=== PATIENT | male | born 1945 | race Caucasian/White ===

== ENCOUNTER 2020-10-31 07:37 | Outpatient (REF) | payer MEDICARE, SELFPAY ==
[2020-10-31 11:08] LABS: Estimated Average Glucose 105 mg/dL; Hemoglobin A1c % 5.3 %
[2020-10-31 11:48] LABS: Alanine Aminotransferase 26 U/L (0-40); Albumin Level 4.3 g/dL (3.5-5.0); Alkaline Phosphatase 98 U/L (39-117); Anion Gap 12 (12-20); Aspartate Amino Transferase 20 U/L (5-37); Bilirubin Total 0.7 mg/dL (0.0-1.0); Blood Urea Nitrogen 16 mg/dL (9-16); Calcium 8.6 mg/dL (8.4-10.2); Carbon Dioxide 28 mmol/L (22-29); Chloride 104 mmol/L (96-108); Cholesterol 172 mg/dL; Estimated Glomerular Filt Rate > 60; Glucose Fasting 108 mg/dL (60-99); HDL Cholesterol 36 mg/dL; LDL Cholesterol Calculated 104 mg/dl; Potassium 3.9 mmol/l (3.3-5.1); Sodium 140 mmol/L (135-145); Total Protein 6.8 g/dL (6.5-8.0); Triglycerides 160 mg/dL
[2020-10-31 11:53] LABS: Glucose Urine UA NEG (NEG); Leukocyte Esterase Urine NEG (NEG); Nitrite Urine NEG (NEG); Specific Gravity - Urine 1.015 (1.005-1.025); Urine Blood TRACE (NEG); Urine Ketones NEG (NEG); Urine Protein NEG (NEG-TRACE)
[2020-10-31 12:02] LABS: Appearance Urine CLEAR; Color Urine YELLOW
[2020-10-31 12:11] LABS: Prostate Specific Antigen 0.88 ng/mL (<0.05-4.0)
[2020-10-31 12:27] LABS: Microalbum/Creatinine Ratio Ur 30.6 ug/mg cr
[2020-10-31 12:50] LABS: RBC Urine 0-2 /HPF (0)
== END 2020-10-31 07:38 | disposition home or self-care (01) ==
LOC: HO.WFDLDS 07:37
PROVIDERS: PCP Internal Medicine; Visit Provider Internal Medicine
DX: D69.6 Thrombocytopenia, unspecified (principal); E78.6 Lipoprotein deficiency; R94.5 Abnormal results of liver function studies; I10 Essential (primary) hypertension; R73.09 Other abnormal glucose
CPT/HCPCS: 80053; 80061; 81001; 81003; 82043; 83036; 84153

== ENCOUNTER 2020-11-04 07:09 | Outpatient (REF) | payer MEDICARE, SELFPAY ==
[2020-11-04 12:04] LABS: MANUAL DIFF FLAG NO
[2020-11-04 12:07] LABS: Basophils Percent Auto 0.3 % (0-2); Eosinophils Absolute Auto 0.3 X10*3/uL (0.0-0.4); Eosinophils Percent Auto 4.7 % (0-4); Hematocrit 44.8 % (42-52); Hemoglobin 15.5 g/dl (14.0-18.0); Imm Gran Abs Auto 0.07 X10*3/uL (0.00-0.03); Lymphocytes Absolute Auto 1.5 X10*3/uL (1.2-4.9); Lymphocytes Percent Auto 20.8 % (20-40); Mean Corpuscular HGB Conc 34.6 g/dl (31.0-36.0); Mean Corpuscular Hemoglobin 31.9 pg (27.0-33.0); Mean Corpuscular Volume 92.2 fL (80-98); Mean Platelet Volume 9.6 fL (9.4-12.4); Monocytes Absolute Auto 0.6 X10*3/uL (0.1-1.2); Monocytes Percent Auto 8.8 % (2-11); Neutrophils Absolute Auto 4.6 X10*3/uL (2.0-8.3); Neutrophils Percent Auto 64.4 % (45-73); Platelet Count 160 X10*3/uL (160-400); Red Blood Count 4.86 X10*6/uL (4.60-5.80); Red Cell Distribution Width 12.6 % (11.0-16.0); White Blood Count 7.1 X10*3/uL (4.8-10.8)
== END 2020-11-04 07:10 | disposition home or self-care (01) ==
LOC: HO.WFDLDS 07:09
PROVIDERS: PCP Internal Medicine; Visit Provider Internal Medicine
DX: D69.6 Thrombocytopenia, unspecified (principal); E78.6 Lipoprotein deficiency; R94.5 Abnormal results of liver function studies; I10 Essential (primary) hypertension; R73.09 Other abnormal glucose
CPT/HCPCS: 36415; 85025

== ENCOUNTER 2020-11-08 15:38 | Outpatient (REF) | payer MEDICARE, SELFPAY ==
--- NOTE | 2020-11-08 | XR_ITS ---
EXAMINATION: XR CHEST CLINICAL INFORMATION: Hemoptysis COMPARISON: Previous chest x-ray most recent February 2018 TECHNIQUE: 2 views of the chest were obtained. FINDINGS: The cardiac and mediastinal contours are stable. The lungs are clear. There is no pleural effusion or pneumothorax. There are degenerative changes of the spine. XR/XR chest 2V IMPRESSION: No evidence for acute disease in the chest. If the patient's symptoms persist, follow-up contrast-enhanced chest CT scan should be considered.
== END 2020-11-08 15:39 | disposition home or self-care (01) ==
LOC: HO.LAB 15:38
PROVIDERS: Absent Provider Internal Medicine; PCP Internal Medicine; Visit Provider Internal Medicine
DX: Z20.828 Contact with and (suspected) exposure to other viral communicable diseases (principal); R04.2 Hemoptysis
CPT/HCPCS: 71046; C9803; U0003

== ENCOUNTER → 2021-09-11 10:47 | Day surgery (SDC) | payer MEDICARE, SELFPAY ==
[2021-09-05 13:03] VITALS: BMI 29.6
--- NOTE | 2021-09-08 10:35 | HO.ANESPROP2 ---
Documented by User: Dee Mccrary NP 09/08/21 10:35 HPI - Anesthesia Eval Consult details Narrative: 76yo M for Colonoscopy [facility] Past Medical History Medical History (Updated 09/05/21 @ 12:58 by Pia Carmona, RAHUL) Glaucoma History of COVID-19 Hx of bladder cancer Hx of gout Hx of renal calculi Pituitary tumor Seasonal allergies Sleep apnea Surgical History Surgical History (Updated 09/05/21 @ 12:57 by Pia Carmona RN) Hx of colonoscopy Hx of cystoscopy Hx of right inguinal hernia repair Social History Social History Are you a primary care process manager to a significant other at home: No Do you presently have visiting nurse or other home services: No Patient Tobacco Use Status: Former Tobacco user Quit Date: Are you DNR?: No Advance Directives: No Advance Directives Information Provided: No (mailed info) Advance Directives on File: No Meds Allergies Allergy/AdvReac Type Severity Reaction Status Date / Time dorzolamide Allergy Unknown Verified 09/05/21 13:00 lisinopril Allergy Unknown Verified 09/05/21 13:00 sulfamethoxazole Allergy Unknown Verified 09/05/21 13:00 [From Bactrim] trimethoprim [From Bactrim] Allergy Unknown Verified 09/05/21 13:00 Home Medications Medication Instructions Recorded Confirmed Last Taken Type aspirin 81 mg tablet,delayed 81 mg PO DAILY 09/05/21 09/05/21 Unknown History release cabergoline 0.5 mg tablet 0.5 mg PO 2XW 09/05/21 09/05/21 Unknown History latanoprost 0.005 % eye drops 1 drp OPHTHALMIC (EYE) QPM 09/05/21 09/05/21 Unknown History metoprolol tartrate 50 mg tablet 50 mg PO BID 09/05/21 09/05/21 Unknown History timolol 0.5 % eye drops 1 drp OPHTHALMIC (EYE) DAILY 09/05/21 09/05/21 Unknown History valsartan 160 mg tablet 160 mg PO DAILY 09/05/21 09/05/21 Unknown History vit C 250 mg-vit E 90 mg-zinc 40 1 tab PO BID 09/05/21 09/05/21 Unknown History mg-copper 1 [id number] capsule (PreserVision AREDS-2) Exam Exam Date and Time: September 08, 2021 1035 Height,Weight and Vital Signs: Height 5 ft 8 in Weight 88.451 kg Assessment and Plan Assessment Anesthesia Assessment: Chart Reviewed Documented by User: Sangeetha Villasenor MD 09/11/21 11:54 HPI - Anesthesia Eval Consult details Narrative: 76yo M for Colonoscopy. 09/11/21- in pre-op area, patient found to be in atrial fibrillation. New onset. Asymptomatic. Stable VS. Spoke to Dr Patel, patient's PCP who confirms no previous h/o afib. Recommends transfer to ER. Report given to ER doctor who accepts transfer. [facility] Past Medical History Medical History (Updated 09/05/21 @ 12:58 by Pia Carmona, RAHUL) Glaucoma History of COVID-19 Hx of bladder cancer Hx of gout Hx of renal calculi Pituitary tumor Seasonal allergies Sleep apnea Surgical History Surgical History (Updated 09/05/21 @ 12:57 by Pia Carmona, RAHUL) Hx of colonoscopy Hx of cystoscopy Hx of right inguinal hernia repair Social History Social History Are you a primary care process manager to a significant other at home: No Do you presently have visiting nurse or other home services: No Patient Tobacco Use Status: Former Tobacco user Quit Date: Are you DNR?: No Advance Directives: No Advance Directives Information Provided: No (mailed info) Advance Directives on File: No Meds Allergies Allergy/AdvReac Type Severity Reaction Status Date / Time dorzolamide Allergy Unknown Verified 09/05/21 13:00 lisinopril Allergy Unknown Verified 09/05/21 13:00 sulfamethoxazole Allergy Unknown Verified 09/05/21 13:00 [From Bactrim] trimethoprim [From Bactrim] Allergy Unknown Verified 09/05/21 13:00 Home Medications Medication Instructions Recorded Confirmed Last Taken Type aspirin 81 mg tablet,delayed 81 mg PO DAILY 09/05/21 09/05/21 Unknown History release cabergoline 0.5 mg tablet 0.5 mg PO 2XW 09/05/21 09/05/21 Unknown History latanoprost 0.005 % eye drops 1 drp OPHTHALMIC (EYE) QPM 09/05/21 09/05/21 Unknown History metoprolol tartrate 50 mg tablet 50 mg PO BID 09/05/21 09/05/21 Unknown History timolol 0.5 % eye drops 1 drp OPHTHALMIC (EYE) DAILY 09/05/21 09/05/21 Unknown History valsartan 160 mg tablet 160 mg PO DAILY 09/05/21 09/05/21 Unknown History vit C 250 mg-vit E 90 mg-zinc 40 1 tab PO BID 09/05/21 09/05/21 Unknown History mg-copper 1 [id number] capsule (PreserVision AREDS-2)
--- NOTE | 2021-09-11 | ECG_ITS ---
Test Reason : Abnormal ekg Blood Pressure : / mmHG Vent. Rate : 081 BPM Atrial Rate : 000 BPM P-R Int : 000 ms QRS Dur : 088 ms QT Int : 368 ms P-R-T Axes : 000 -01 008 degrees QTc Int : 427 ms Atrial fibrillation Abnormal ECG When compared with ECG of 25-NOV-2008 14:13, Atrial fibrillation has replaced Sinus rhythm Referred By: Sangeetha Villasenor Electronically Signed By:TROY ERVIN MD
--- NOTE | 2021-09-11 11:37 | PC.NURSE ---
question new onset of afib, anesthesia aware, ekg ordered, pcp made aware. pt to go to ED
== END ==
PROVIDERS: PCP Internal Medicine; Visit Provider Internal Medicine
DX: Z12.11 Encounter for screening for malignant neoplasm of colon (principal); Z53.8 Procedure and treatment not carried out for other reasons; I48.91 Unspecified atrial fibrillation; I10 Essential (primary) hypertension; G47.33 Obstructive sleep apnea (adult) (pediatric); Z79.82 Long term (current) use of aspirin; Z88.8 Allergy status to other drugs, medicaments and biological substances
CPT/HCPCS: 93005

== ENCOUNTER 2021-09-11 12:07 | Emergency (ER) | payer MEDICARE, SELFPAY ==
--- NOTE | ~2021-09-11 | XR_ITS ---
EXAMINATION: XR CHEST CLINICAL INFORMATION: Dyspnea COMPARISON: Chest radiographs 11/08/2020, 02/21/2018 TECHNIQUE: Portable upright AP view of the chest was obtained. FINDINGS: The lungs are clear. The vascularity is normal. There is no pneumothorax, airspace consolidation or groundglass opacity. The costophrenic sulci are clear. The heart is normal in size and the hilar and mediastinal contours are normal. No visible acute bony abnormality. XR/XR chest 1V IMPRESSION: Unremarkable examination.
[2021-09-11 12:16] VITALS: BP 142/83; PULSE 76; RESP 16; TEMP 35.8; O2SAT 98; BMI 27.3
--- NOTE | 2021-09-11 12:25 | ECG_ITS ---
Test Reason : AFIB Blood Pressure : / mmHG Vent. Rate : 078 BPM Atrial Rate : 000 BPM P-R Int : 000 ms QRS Dur : 088 ms QT Int : 362 ms P-R-T Axes : 000 -05 -02 degrees QTc Int : 412 ms Atrial fibrillation Nonspecific T wave abnormality Abnormal ECG T wave amplitude has decreased in Inferior leads Lateral leads Referred By: Demetrice Marin Electronically Signed By:TROY ERVIN MD
--- NOTE | 2021-09-11 12:27 | ED.GENADULT ---
HPI - General Adult General Chief complaint: Recheck/Abnormal Lab/Rx Stated complaint: From OR Time Seen by Provider: 09/11/21 12:25 Source: patient Mode of arrival: other (from short stay) Limitations: no limitations History of Present Illness MD complaint: sent from short stay for afib Onset (ago): minute(s) Severity: mild Relieving factors: none Exacerbating factors: none Associated symptoms: denies other symptoms Treatments prior to arrival: none Related Data Home Medications Medication Instructions Recorded Confirmed aspirin 81 mg tablet,delayed 81 mg PO DAILY 09/05/21 09/05/21 release cabergoline 0.5 mg tablet 0.5 mg PO 2XW 09/05/21 09/05/21 latanoprost 0.005 % eye drops 1 drp OPHTHALMIC (EYE) QPM 09/05/21 09/05/21 metoprolol tartrate 50 mg tablet 50 mg PO BID 09/05/21 09/05/21 timolol 0.5 % eye drops 1 drp OPHTHALMIC (EYE) DAILY 09/05/21 09/05/21 valsartan 160 mg tablet 160 mg PO DAILY 09/05/21 09/05/21 vit C 250 mg-vit E 90 mg-zinc 40 1 tab PO BID 09/05/21 09/05/21 mg-copper 1 [id number] capsule (PreserVision AREDS-2) Previous Rx's Medication Instructions Recorded apixaban 5 mg tablet (Eliquis) 5 mg PO BID #60 tab 09/11/21 Allergies Allergy/AdvReac Type Severity Reaction Status Date / Time dorzolamide Allergy Unknown Verified 09/05/21 13:00 lisinopril Allergy Unknown Verified 09/05/21 13:00 sulfamethoxazole Allergy Unknown Verified 09/05/21 13:00 [From Bactrim] trimethoprim [From Bactrim] Allergy Unknown Verified 09/05/21 13:00 Review of Systems Review of Systems: Constitutional : No Fever, No Chills ENT/Mouth : No sore throat, No Rhinorrhea, No Swallowing Difficulty Eyes: No Eye Pain, No Swelling, No Redness Cardiovascular : No Chest Pain, positive SOB, No Orthopnea, no Edema Respiratory : No Cough, No Sputum, No Wheezing, positive dyspnea for 1 year up the stairs Gastrointestinal : No Nausea, No Vomiting, No Diarrhea, No abdominal Pain, No Hematochezia, No Melena Genitourinary : No Dysuria, No Urinary Frequency, No Hematuria Musculoskeletal : No joint pain, No Myalgias Skin : No Skin Lesions, No rash Neuro : No Weakness, No Numbness, No Dizziness, No Headache Psych : No Anxiety/Panic, No Depression Heme/Lymph: No Bruising, No Lymphadenopathy Endocrine : No Polyuria, No Polydipsia All other systems reviewed and are negative [facility] Past Medical History Medical History (Updated 09/11/21 @ 14:18 by Demetrice Marin DO) Glaucoma History of COVID-19 HTN (hypertension) Hx of bladder cancer Hx of gout Hx of renal calculi Pituitary tumor Seasonal allergies Sleep apnea Surgical History Hx of colonoscopy Hx of cystoscopy Hx of right inguinal hernia repair Social History Social History Are you a primary lawn care worker to a significant other at home: No Do you presently have visiting nurse or other home services: No Alcohol intake: never Patient Tobacco Use Status: Former Tobacco user Quit Date: Use of substances other than those prescribed or required for medical reasons: No Advance Directives: No Advance Directives Information Provided: Yes Physical Exam Vital Signs: Vital Signs: Last Vital Signs Temp 97.9 F 09/11/21 13:07 Pulse 72 09/11/21 13:57 Resp 12 09/11/21 13:57 BP 134/72 09/11/21 13:57 Pulse Ox 94 09/11/21 13:57 Body Mass Index 27.3 Appearance: Alert. Oriented X3. No acute distress. Eyes: Pupils equal, round and reactive to light. ENT: Pharynx normal. Neck: Normal inspection. Neck supple. CVS: irregular heart rate and rhythm. Pulses normal. Respiratory: No respiratory distress. Breath sounds normal. Abdomen: Soft and non-tender. Skin: Skin warm and dry. Normal skin color. Normal skin turgor. Extremities: No lower extremity edema. No calf ttp Neuro: Oriented X 3. No motor deficit. No sensory deficit. Course Course Course Narrative: call to patient's neurosurgeon to confirm DOAC therapy appropriate given his history patient has been rate controlled at this time on metoprolol 50mg BID per Neurology no contraindications to DOAC per Dr. Schwartz no acute findings, asymptomatic will start on eliquis and refer to PCP Medical Decision Making MDM Narrative Medical decision making narrative: 76 yo male with HTN, hx of pituitary tumor on medications inoperable comes from short stay surgery prior to colonoscopy here with c/o new onset afib - no complaints noted 1 year of dyspnea going up the stairs, has no GIB symptoms or issues with bleeding in the past. He has a chadsvasc score of 3 so he would require AC therapy. Patient has pituitary tumor will consult his [facility] provider to discuss if this would be an issue with AC therapy. Lab Data Result diagrams: 09/11/21 14:11 09/11/21 14:11 Labs: Lab Results 09/11/21 09/11/21 09/11/21 Range/Units 14:11 14:11 14:11 WBC 6.5 (4.8-10.8) X10*3/uL RBC 4.58 L (4.60-5.80) X10*6/uL Hgb 14.9 (14.0-18.0) g/dl Hct 42.9 (42-52) % MCV 93.7 (80-98) fL MCH 32.5 (27.0-33.0) pg MCHC 34.7 (31.0-36.0) g/dl RDW 12.5 (11.0-16.0) % Plt Count 141 L (160-400) X10*3/uL MPV 9.6 (9.4-12.4) fL Immature Gran % (Auto) 0.5 H (0.0-0.4) % Neut % (Auto) 77.3 H (45-73) % Lymph % (Auto) 14.2 L (20-40) % [place] % (Auto) 5.7 (2-11) % Eos % (Auto) 2.0 (0-4) % Baso % (Auto) 0.3 (0-2) % Lymph # (Auto) 0.9 L (1.2-4.9) X10*3/uL [place] # (Auto) 0.4 (0.1-1.2) X10*3/uL Eos # (Auto) 0.1 (0.0-0.4) X10*3/uL Baso # (Auto) 0.0 (0.0-0.2) X10*3/uL Abs Immat Gran (auto) 0.03 (0.00-0.03) X10*3/uL Absolute Neuts (auto) 5.0 (2.0-8.3) X10*3/uL Absolute Nucleated RBC 0.000 (0.0-0.012) X10*3/uL Nucleated RBC % (auto) 0.0 (0.0-0.2) /100WBC Smear Tech's Comments Not Reportable PT 12.5 (9.9-13.0) SEC INR 1.1 (0.9-1.1) APTT 40.8 H (24.1-38.0) SEC Sodium 144 (135-145) mmol/L Potassium 4.5 (3.3-5.1) mmol/L Chloride 109 H (96-108) mmol/L Carbon Dioxide 27 (22-29) mmol/L Anion Gap 13 (12-20) BUN 13 (9-16) mg/dL Creatinine 0.95 (0.5-1.4) mg/dL Estim Creat Clear Calc 64.0 Estimated GFR > 60 Random Glucose 94 (60-115) mg/dL Calcium 9.1 (8.4-10.2) mg/dL Magnesium 1.9 (1.6-2.6) mg/dL Total Bilirubin 0.7 (0.0-1.0) mg/dL Direct Bilirubin 0.3 (0.0-0.5) mg/dL AST 18 (5-37) U/L ALT 26 (0-40) U/L Alkaline Phosphatase 79 (39-117) U/L Troponin I High Sens (<3.5-35.0) ng/L B-Natriuretic Peptide (<100) pg/mL Total Protein 6.1 L (6.5-8.0) g/dL Albumin 4.1 (3.5-5.0) g/dL COVID-19 (RUSTY) (Negative) COVID-19 Clin Com 09/11/21 09/11/21 Range/Units 14:11 14:12 WBC (4.8-10.8) X10*3/uL RBC (4.60-5.80) X10*6/uL Hgb (14.0-18.0) g/dl Hct (42-52) % MCV (80-98) fL MCH (27.0-33.0) pg MCHC (31.0-36.0) g/dl RDW (11.0-16.0) % Plt Count (160-400) X10*3/uL MPV (9.4-12.4) fL Immature Gran % (Auto) (0.0-0.4) % Neut % (Auto) (45-73) % Lymph % (Auto) (20-40) % [place] % (Auto) (2-11) % Eos % (Auto) (0-4) % Baso % (Auto) (0-2) % Lymph # (Auto) (1.2-4.9) X10*3/uL [place] # (Auto) (0.1-1.2) X10*3/uL Eos # (Auto) (0.0-0.4) X10*3/uL Baso # (Auto) (0.0-0.2) X10*3/uL Abs Immat Gran (auto) (0.00-0.03) X10*3/uL Absolute Neuts (auto) (2.0-8.3) X10*3/uL Absolute Nucleated RBC (0.0-0.012) X10*3/uL Nucleated RBC % (auto) (0.0-0.2) /100WBC Smear Tech's Comments PT (9.9-13.0) SEC INR (0.9-1.1) APTT (24.1-38.0) SEC Sodium (135-145) mmol/L Potassium (3.3-5.1) mmol/L Chloride (96-108) mmol/L Carbon Dioxide (22-29) mmol/L Anion Gap (12-20) BUN (9-16) mg/dL Creatinine (0.5-1.4) mg/dL Estim Creat Clear Calc Estimated GFR Random Glucose (60-115) mg/dL Calcium (8.4-10.2) mg/dL Magnesium (1.6-2.6) mg/dL Total Bilirubin (0.0-1.0) mg/dL Direct Bilirubin (0.0-0.5) mg/dL AST (5-37) U/L ALT (0-40) U/L Alkaline Phosphatase (39-117) U/L Troponin I High Sens 5.3 (<3.5-35.0) ng/L B-Natriuretic Peptide 165 H (<100) pg/mL Total Protein (6.5-8.0) g/dL Albumin (3.5-5.0) g/dL COVID-19 (RUSTY) Negative (Negative) COVID-19 Clin Com See Note ECG Data Attestation: I personally reviewed and interpreted this ECG as follows: Interpretation: Rate: 78 Rhythm: afib [place]: left Normal P waves. Normal DOUG. Normal QRS complex. ST T wave : normal no GÓMEZ qTC: normal prior studies: no acute ischemia, changed from prior The study has been interpreted contemporaneously by me. . Discharge Plan Discharge Clinical Impression: A-fib Qualifiers: Atrial fibrillation type: unspecified Qualified Code(s): I48.91 - Unspecified atrial fibrillation Patient Disposition: Home, Self-Care Instructions: A-fib (Atrial Fibrillation) (ED), Blood Thinners (ED) Additional Instructions: return to ED for any worsening symptoms or concerns if you fall or hit your head you need to be evaluated Prescriptions: New Eliquis 5 mg tablet 5 mg PO BID Qty: 60 RF: 0 No Action latanoprost 0.005 % Drops 1 drp OPHTHALMIC (EYE) QPM RF: 0 aspirin [Aspir-81] 81 mg Tablet,Delayed Release (Dr/Ec) 81 mg PO DAILY RF: 0 timolol 0.5 % Drops 1 drp OPHTHALMIC (EYE) DAILY RF: 0 cabergoline 0.5 mg Tablet 0.5 mg PO 2XW RF: 0 metoprolol tartrate 50 mg Tablet 50 mg PO BID RF: 0 valsartan 160 mg Tablet 160 mg PO DAILY RF: 0 PreserVision AREDS-2 250-90-40-1 mg Capsule 1 tab PO BID RF: 0 Referrals: Bull Gonzalez MD [Primary Care Provider] - 2 days Britton Squires MD [Physician] - 2 weeks
[2021-09-11 13:07] VITALS: BP 186/127; PULSE 81; RESP 13; TEMP 36.6; O2SAT 99
[2021-09-11 13:57] VITALS: BP 134/72; PULSE 72; RESP 12; O2SAT 94
[2021-09-11 14:51] LABS: MANUAL DIFF FLAG SCAN; Mean Corpuscular HGB Conc 34.7 g/dl (31.0-36.0); Mean Corpuscular Hemoglobin 32.5 pg (27.0-33.0); Mean Corpuscular Volume 93.7 fL (80-98); PLT CLUMP 1; Red Cell Distribution Width 12.5 % (11.0-16.0); SCAN SMEAR FLAG 1
[2021-09-11 14:53] LABS: Basophils Percent Auto 0.3 % (0-2); Eosinophils Absolute Auto 0.1 X10*3/uL (0.0-0.4); Hematocrit 42.9 % (42-52); Hemoglobin 14.9 g/dl (14.0-18.0); Imm Gran Abs Auto 0.03 X10*3/uL (0.00-0.03); Imm Gran Pct Auto 0.5 % (0.0-0.4); Lymphocytes Absolute Auto 0.9 X10*3/uL (1.2-4.9); Lymphocytes Percent Auto 14.2 % (20-40); Mean Platelet Volume 9.6 fL (9.4-12.4); Monocytes Absolute Auto 0.4 X10*3/uL (0.1-1.2); Monocytes Percent Auto 5.7 % (2-11); Neutrophils Percent Auto 77.3 % (45-73); Platelet Count 141 X10*3/uL (160-400); Red Blood Count 4.58 X10*6/uL (4.60-5.80); White Blood Count 6.5 X10*3/uL (4.8-10.8)
[2021-09-11 14:55] LABS: INTERNATIONAL NORM RATIO 1.1 (0.9-1.1); Prothrombin Time 12.5 SEC (9.9-13.0)
[2021-09-11 14:58] LABS: Partial Thromboplastin Time 40.8 SEC (24.1-38.0)
[2021-09-11 15:03] LABS: Alanine Aminotransferase 26 U/L (0-40); Albumin Level 4.1 g/dL (3.5-5.0); Alkaline Phosphatase 79 U/L (39-117); Anion Gap 13 (12-20); Aspartate Amino Transferase 18 U/L (5-37); Bilirubin Direct 0.3 mg/dL (0.0-0.5); Bilirubin Total 0.7 mg/dL (0.0-1.0); Blood Urea Nitrogen 13 mg/dL (9-16); Calcium 9.1 mg/dL (8.4-10.2); Carbon Dioxide 27 mmol/L (22-29); Chloride 109 mmol/L (96-108); Estimated Glomerular Filt Rate > 60; Glucose Random 94 mg/dL (60-115); Magnesium 1.9 mg/dL (1.6-2.6); Potassium 4.5 mmol/L (3.3-5.1); Sodium 144 mmol/L (135-145); Total Protein 6.1 g/dL (6.5-8.0)
[2021-09-11 15:08] LABS: COVID-19 Test Negative (Negative)
[2021-09-11 15:09] LABS: B Type Natriuretic Peptide 165 pg/mL (<100); Troponin-I High Sensitivity 5.3 ng/L (<3.5-35.0)
== END 2021-09-11 15:32 | disposition home or self-care (01) ==
PROVIDERS: Emergency Provider Emergency Medicine; PCP Internal Medicine
DX: I48.91 Unspecified atrial fibrillation (principal); D49.7 Neoplasm of unspecified behavior of endocrine glands and other parts of nervous system; I10 Essential (primary) hypertension; Z20.822 Contact with and (suspected) exposure to COVID-19
CPT/HCPCS: 36415; 71045; 80048; 80076; 83735; 83880; 84443; 84484; 85025; 85610; 85730; 87635; 93005; 99283; 99284

== ENCOUNTER → 2021-09-27 12:05 | Outpatient (BNVA) | payer MEDICARE, SELFPAY | PROVIDERS: PCP Internal Medicine; Referring Provider Internal Medicine; Visit Provider Internal Medicine | DX: I48.19 Other persistent atrial fibrillation (principal); I10 Essential (primary) hypertension; G47.33 Obstructive sleep apnea (adult) (pediatric) | CPT/HCPCS: 99202 ==

== ENCOUNTER → 2021-11-07 09:16 | Outpatient (REF) | payer MEDICARE, SELFPAY ==
--- NOTE | 2021-11-07 09:20 | HM_ITS ---
Total monitoring time 3 days. Underlying rhythm is atrial fibrillation. Average 81/Min. Minimum 51/Min. Maximum 115/Min. No significant tachycardia. No pauses. Very rare PVCs. Minimal burden. No patient events. Overall, well controlled atrial fibrillation. MTDD
--- NOTE | 2021-11-07 09:20 | CA_ITS ---
Transthoracic Echocardiogram Patient (Last, First, Middle): Keven Aquino Paul J Gender: Male Date of : 1945 Age: 76 Procedure Date: 11/07/2021 Procedure Type: Transthoracic Echocardiogram Location: OP Height: 172.72 cm Weight: 79.38 kg BSA: 1.93 m2 Heart Rate: bpm BP: 138 / 74 mmHg Project Reservoir Engineer: [email or web address] Referring MD: Atilio Ball MD Symptoms: I48.19 - Other persistent atrial fibrillation ECG Rhythm: Atrial Fibrillation Conclusions: - The left ventricular systolic function is mildly decreased. The visually estimated ejection fraction is between 45-50%. - No obvious valvular pathology seen on this study. - There is mild dilatation of the ascending aorta measuring 4.00 cm. Findings Left Ventricle Normal left ventricular cavity size. The left ventricular systolic function is mildly decreased. The visually estimated ejection fraction is between 45 50%. There is mild global hypokinesis. Diastolic function is indeterminate on the basis of available data. There is mild septal asymmetric hypertrophy. Right Ventricle Normal right ventricular cavity size. There is normal right ventricular systolic function. Atria Both atria are normal in size. Aortic Valve There is a normal trileaflet aortic valve. There is no aortic valve stenosis. There is trace (trivial) aortic valve regurgitation. Mitral Valve The mitral valve appears normal. There is trace mitral valve regurgitation. There is no mitral valve stenosis. Pulmonic Valve The pulmonic valve was not well visualized. Tricuspid Valve There is no tricuspid valve regurgitation. Tricuspid regurgitation envelope is inadequate for calculation of right ventricular systolic pressure. Great Vessels There is mild dilatation of the ascending aorta measuring 4.00 cm. Venous The inferior vena cava is normal in size and collapses greater than 50% with inspiration. Pericardium/Pleural There is no evidence of pericardial effusion. Prior Study Comparison No prior study available for comparison. Recommendations, Care & Conclusions No obvious valvular pathology seen on this study. Measurements M-Mode Liner Measurements Normals - Women/Men LVIDd: 5.49 3.9-5.3/4.2-5.9 cm LVIDd Index: 2.84 1.9-3.2 cm/m2 LVIDs: 3.73 2.0-3.8 cm M-Mode Volumes LV EDV: 147.00 LV ESV: 59.30 2D Linear Measurements IVSd: 1.21 0.6-0.9/0.6-1.0 cm LVIDd: 4.76 3.9-5.3/4.2-5.9 cm LVIDd Index: 2.47 2.4-3.2/2.2-3.1 cm/m2 LVIDs: 3.54 2.0-3.6 cm LVPWd: 0.98 0.7-1.1 cm Ao Root: 3.30 2.1-3.5 cm LA Diam: 4.20 2.7-3.8/3.0-4.0 cm LAIDs Index: 2.18 1.5-2.3 cm/m2 LV Mass: 237.12 67-162/88-224 g LV Mass Index: 122.86 43-95/49-115 g/m2 LVOT Diam: 2.10 3.0+(-)1.3 cm 2D Systolic Function EF 4C: 58.10 >55% EF 2C: 53.60 >55% M-Mode Systolic Function FS: 32.10 27-47/25-43% Mitral Valve MV Pk E: 0.81 MV Decel Time: 173.00 E'Lateral: 9.14 E'Medial: 7.03 E/E' Med: 11.50 E/E' Lat: 8.90 PHT: 51.00 MVA PHT: 4.31 Decel Rankin: 4.91 Aortic Valve AoV Pk Benito: 0.90 AoV Pk Grad: 3.00 LVOT LVOT Pk Benito: 0.74 LVOT Mn Benito: 0.51 LVOT VTI: 0.16 LVOT Pk Grad: 2.00 LVOT Mn Grad: 1.00 LVOT Diam: 2.10 LVOT Area: 3.46 Diastolic Function MV Pk E: 0.81 E'Medial: 7.03 E/E' Med: 11.50 E' Laterial: 9.14 E/E' Lat: 8.90 Right Ventricle TAPSE (mm): 1.82 TVS' Benito: 9.68 Tricuspid Valve RA Press: 3.00 Great Vessels Aorta Ao Root-2D: 3.30 2.0-3.7 cm Ao Asc: 4.00 2.1-3.4 cm Updated in Other Vendor System with Status of Final Atilio Ball MD electronically signed on 11/10/2021 11:34:24 AM with status of Final
== END ==
LOC: HO.CARD 09:16
PROVIDERS: PCP Internal Medicine; Visit Provider Internal Medicine
DX: I48.19 Other persistent atrial fibrillation (principal)
CPT/HCPCS: 93242; 93306

== ENCOUNTER → 2021-11-08 10:03 | Outpatient (BNVA) | payer MEDICARE, SELFPAY | PROVIDERS: PCP Internal Medicine; Visit Provider Internal Medicine | DX: G47.33 Obstructive sleep apnea (adult) (pediatric) (principal); I48.19 Other persistent atrial fibrillation | CPT/HCPCS: 99202 ==

== ENCOUNTER 2021-11-21 10:37 | Outpatient (REF) | payer MEDICARE, SELFPAY ==
[2021-11-21 10:40] LABS: MANUAL DIFF FLAG NO
[2021-11-21 11:07] LABS: Appearance Urine CLEAR; Color Urine YELLOW; Glucose Urine UA NEG (NEG); Leukocyte Esterase Urine NEG (NEG); Nitrite Urine NEG (NEG); Urine Blood NEG (NEG); Urine Ketones 5 MG/DL (NEG); Urine Protein NEG (NEG-TRACE)
[2021-11-21 11:26] LABS: Basophils Percent Auto 0.4 % (0-2); Eosinophils Absolute Auto 0.4 X10*3/uL (0.0-0.4); Eosinophils Percent Auto 7.7 % (0-4); Hemoglobin 15.7 g/dl (14.0-18.0); Imm Gran Abs Auto 0.03 X10*3/uL (0.00-0.03); Imm Gran Pct Auto 0.6 % (0.0-0.4); Lymphocytes Absolute Auto 1.5 X10*3/uL (1.2-4.9); Lymphocytes Percent Auto 30.4 % (20-40); Mean Corpuscular HGB Conc 33.4 g/dl (31.0-36.0); Mean Corpuscular Hemoglobin 31.2 pg (27.0-33.0); Mean Corpuscular Volume 93.3 fL (80.0-98.0); Mean Platelet Volume 10.4 fL (9.4-12.4); Monocytes Absolute Auto 0.4 X10*3/uL (0.1-1.2); Monocytes Percent Auto 8.9 % (2-11); Neutrophils Absolute Auto 2.6 x10*3/uL (2.0-8.3); Platelet Count 128 X10*3/uL (160-400); Red Blood Count 5.04 X10*6/uL (4.60-5.80); Red Cell Distribution Width 12.3 % (11.0-16.0); White Blood Count 4.9 X10*3/uL (4.8-10.8)
[2021-11-21 11:32] LABS: Alanine Aminotransferase 52 U/L (0-40); Albumin Level 4.1 g/dL (3.5-5.0); Alkaline Phosphatase 97 U/L (39-117); Anion Gap 10 (12-20); Aspartate Amino Transferase 28 U/L (5-37); Bilirubin Total 0.5 mg/dL (0.0-1.0); Blood Urea Nitrogen 23 mg/dL (9-16); Calcium 8.9 mg/dL (8.4-10.2); Carbon Dioxide 30 mmol/L (22-29); Chloride 108 mmol/L (96-108); Cholesterol 151 mg/dL; Creatinine Urine 137.79 mg/dL; Estimated Glomerular Filt Rate > 60; Glucose Fasting 87 mg/dL (60-99); HDL Cholesterol 38 mg/dL; LDL Cholesterol Calculated 97 mg/dl; Microalbum/Creatinine Ratio Ur 10.8 ug/mg cr; Potassium 3.6 mmol/L (3.3-5.1); Sodium 144 mmol/L (135-145); Total Protein 6.3 g/dL (6.5-8.0); Triglycerides 84 mg/dL
[2021-11-21 11:39] LABS: Estimated Average Glucose 100 mg/dL; Hemoglobin A1c % 5.1 %
[2021-11-21 12:28] LABS: PSA,Total (Free>4and<10) 0.19 ng/mL (0.00-4.00)
== END 2021-11-21 10:38 | disposition home or self-care (01) ==
LOC: HO.LNP 10:37
PROVIDERS: Visit Provider Internal Medicine
DX: I10 Essential (primary) hypertension (principal); R73.03 Prediabetes; E78.6 Lipoprotein deficiency; D69.6 Thrombocytopenia, unspecified; Z12.5 Encounter for screening for malignant neoplasm of prostate
CPT/HCPCS: 80053; 80061; 81003; 82043; 83036; 84153; 85025

== ENCOUNTER → 2021-11-28 10:58 | Outpatient (REF) | payer MEDICARE, OTHER, SELFPAY | LOC: HO.SL 10:58 | PROVIDERS: PCP Internal Medicine; Visit Provider Internal Medicine | DX: G47.33 Obstructive sleep apnea (adult) (pediatric) (principal); I48.19 Other persistent atrial fibrillation | CPT/HCPCS: 95806 ==

== ENCOUNTER → 2021-12-11 09:49 | Outpatient (BNVA) | payer MEDICARE, OTHER, SELFPAY | PROVIDERS: PCP Internal Medicine; Referring Provider Internal Medicine; Visit Provider Internal Medicine | DX: I48.19 Other persistent atrial fibrillation (principal); I10 Essential (primary) hypertension; G47.33 Obstructive sleep apnea (adult) (pediatric); I42.9 Cardiomyopathy, unspecified | CPT/HCPCS: 99212 ==

== ENCOUNTER → 2021-12-19 13:16 | Outpatient (BNVA) | payer MEDICARE, OTHER, SELFPAY | PROVIDERS: PCP Internal Medicine; Visit Provider Internal Medicine | DX: I48.19 Other persistent atrial fibrillation (principal); I42.9 Cardiomyopathy, unspecified; I10 Essential (primary) hypertension; G47.33 Obstructive sleep apnea (adult) (pediatric) | CPT/HCPCS: 99212 ==

== ENCOUNTER → 2022-01-11 07:45 | Outpatient (REF) | payer MEDICARE, OTHER, SELFPAY ==
--- NOTE | ~2022-01-11 | NM_ITS ---
Lexiscan Myocardial perfusion study Indication: Cardiomyopathy, atrial fibrillation, assess for coronary disease and ischemia Technique: The patient was brought in for a Lexiscan perfusion study on 01/11/2022 and was injected 0.4 mg of Lexiscan intravenously. Within a minute of this injection 25 mCi of sestamibi was given intravenously. Images were obtained using the SPECT gamma camera interlaced with the gating device. Images were obtained in supine position. Resting perfusion study was performed on 01/12/2022. Patient was administered 25 mCi of sestamibi intravenously at rest. Images were then obtained in supine position. Total DLP 86mGy-cm. Images were processed with the software and compared side to side in short axis, horizontal long axis and vertical long axis views. Findings: Raw acquisition was reviewed. The stress perfusion study showed diminished tracer uptake along the basal inferior wall. There is improvement with CT attenuation correction and hence could be from diaphragmatic attenuation artifact. The gated study shows low normal LV systolic function with calculated LVEF of 53%. LV cavity is normal in size. The gated study shows normal wall thickening and contraction of segments. Resting study shows diminished tracer uptake at the basal inferior wall. There is improvement with CT attenuation correction and hence could be from diaphragmatic attenuation artifact. Gating at rest reveals normal wall motion with ejection fraction at 45%. The findings are consistent with no clear reversible defects. Fixed basal inferior defect suspected to be from diaphragmatic attenuation artifact. NM/NM cardiolite stress test Impression: 1. Myocardial perfusion imaging study shows no evidence of any ischemia or infarction. Fixed basal reversible defect suspected to be from diaphragmatic attenuation artifact. 2. Gated LVEF is 53% during stress and 45% during rest. 3. Transient ischemic dilatation not present. EKG component of the test reported separately.
--- NOTE | 2022-01-11 07:48 | CA_ITS ---
Acquisition Time: 2022-01-11 07:51:17 Total Exercise Time: 00:02:00 Test Indications: Abnormal ECG Medications: SEE CHART Protocol: LEXISCAN Max HR: 137 BPM 95% of Pred: 144 BPM Max BP: 136/082 mmHG Max Work Load: 1.0 METS Pharmacological stress test with Lexiscan injection, while sitting and kicking his legs, without anginal symptoms, without arrythmia, with normotensive response to injection, with nondiagnostic EKG for ischemia. In recovery he was given Aminophylline 75mg IVP to reverse Lexiscan due to elevated heart rate, with improvement. Nuclear images pending. Test reviewed with Dr Ball. Referred By: Atilio Ball Overread By: BRITTNY ADAMES
== END ==
LOC: HO.CARD 07:45
PROVIDERS: PCP Internal Medicine; Visit Provider Internal Medicine
DX: I42.9 Cardiomyopathy, unspecified (principal)
CPT/HCPCS: 78452; 93017; A9500; J0280; J2785

== ENCOUNTER 2022-02-26 11:27 | Outpatient (REF) | payer MEDICARE, OTHER, SELFPAY ==
[2022-02-26 11:33] LABS: MANUAL DIFF FLAG NO
[2022-02-26 11:40] LABS: Basophils Percent Auto 0.5 % (0-2); Eosinophils Absolute Auto 0.2 X10*3/uL (0.0-0.4); Hematocrit 48.7 % (42.0-52.0); Hemoglobin 16.1 g/dl (14.0-18.0); Imm Gran Abs Auto 0.03 X10*3/uL (0.00-0.03); Imm Gran Pct Auto 0.5 % (0.0-0.4); Lymphocytes Absolute Auto 1.7 X10*3/uL (1.2-4.9); Lymphocytes Percent Auto 28.8 % (20-40); Mean Corpuscular HGB Conc 33.1 g/dl (31.0-36.0); Mean Corpuscular Volume 93.8 fL (80.0-98.0); Mean Platelet Volume 10.2 fL (9.4-12.4); Monocytes Absolute Auto 0.6 X10*3/uL (0.1-1.2); Monocytes Percent Auto 9.4 % (2-11); Neutrophils Absolute Auto 3.4 x10*3/uL (2.0-8.3); Neutrophils Percent Auto 56.8 % (45-73); Platelet Count 129 X10*3/uL (160-400); Red Blood Count 5.19 X10*6/uL (4.60-5.80); Red Cell Distribution Width 13.2 % (11.0-16.0); White Blood Count 6.1 X10*3/uL (4.8-10.8)
[2022-02-26 11:54] LABS: Blood Urea Nitrogen 19 mg/dL (9-16); Estimated Glomerular Filt Rate > 60
== END 2022-02-26 11:28 | disposition home or self-care (01) ==
LOC: HO.LNP 11:27
PROVIDERS: Visit Provider Internal Medicine
DX: D69.6 Thrombocytopenia, unspecified (principal); R79.9 Abnormal finding of blood chemistry, unspecified
CPT/HCPCS: 82565; 84520; 85025

== ENCOUNTER → 2022-03-13 12:10 | Outpatient (BNVA) | payer MEDICARE, OTHER, SELFPAY | PROVIDERS: PCP Internal Medicine; Referring Provider Internal Medicine; Visit Provider Internal Medicine | DX: I48.19 Other persistent atrial fibrillation (principal); I42.9 Cardiomyopathy, unspecified; I10 Essential (primary) hypertension; G47.33 Obstructive sleep apnea (adult) (pediatric); Z79.01 Long term (current) use of anticoagulants; Z79.899 Other long term (current) drug therapy | CPT/HCPCS: 99212 ==

== ENCOUNTER → 2022-03-15 11:20 | Outpatient (BNVA) | payer MEDICARE, OTHER, SELFPAY | PROVIDERS: PCP Internal Medicine; Visit Provider Internal Medicine | DX: G47.33 Obstructive sleep apnea (adult) (pediatric) (principal) | CPT/HCPCS: 99212 ==

== ENCOUNTER → 2022-06-07 12:57 | Outpatient (BNVA) | payer MEDICARE, OTHER, SELFPAY | PROVIDERS: PCP Internal Medicine; Visit Provider Internal Medicine | DX: G47.33 Obstructive sleep apnea (adult) (pediatric) (principal) | CPT/HCPCS: 99212 ==

== ENCOUNTER → 2022-08-06 11:17 | Outpatient (BNVA) | payer MEDICARE, OTHER, SELFPAY | PROVIDERS: PCP Internal Medicine; Visit Provider Internal Medicine | DX: G47.33 Obstructive sleep apnea (adult) (pediatric) (principal) | CPT/HCPCS: 99212 ==

== ENCOUNTER → 2022-09-06 10:33 | Outpatient (BNVA) | payer MEDICARE, OTHER, SELFPAY | PROVIDERS: PCP Internal Medicine; Referring Provider Internal Medicine; Visit Provider Internal Medicine | DX: I48.19 Other persistent atrial fibrillation (principal); I10 Essential (primary) hypertension; I42.9 Cardiomyopathy, unspecified; G47.33 Obstructive sleep apnea (adult) (pediatric) | CPT/HCPCS: 93005; 99212 ==

== ENCOUNTER 2022-11-23 10:35 | Outpatient (REF) | payer MEDICARE, OTHER, SELFPAY ==
[2022-11-23 10:40] LABS: MANUAL DIFF FLAG NO
[2022-11-23 10:53] LABS: Basophils Percent Auto 0.5 % (0-2); Eosinophils Absolute Auto 0.3 X10*3/uL (0.0-0.4); Eosinophils Percent Auto 5.6 % (0-4); Hemoglobin 14.8 g/dl (14.0-18.0); Imm Gran Abs Auto 0.02 X10*3/uL (0.00-0.03); Imm Gran Pct Auto 0.5 % (0.0-0.4); Lymphocytes Percent Auto 21.9 % (20-40); Mean Corpuscular HGB Conc 33.6 g/dl (31.0-36.0); Mean Corpuscular Hemoglobin 31.1 pg (27.0-33.0); Mean Corpuscular Volume 92.4 fL (80.0-98.0); Mean Platelet Volume 9.9 fL (9.4-12.4); Monocytes Absolute Auto 0.4 X10*3/uL (0.1-1.2); Monocytes Percent Auto 9.9 % (2-11); Neutrophils Absolute Auto 2.7 x10*3/uL (2.0-8.3); Neutrophils Percent Auto 61.6 % (45-73); Platelet Count 128 X10*3/uL (160-400); Red Blood Count 4.76 X10*6/uL (4.60-5.80); White Blood Count 4.4 X10*3/uL (4.8-10.8)
[2022-11-23 10:55] LABS: Appearance Urine Clear; Color Urine Yellow; Glucose Urine UA Negative (Negative); Leukocyte Esterase Urine Negative (Negative); Nitrite Urine Negative (Negative); Specific Gravity - Urine 1.015 (1.005-1.025); Urine Blood Negative (Negative); Urine Ketones Negative (Negative); Urine Protein Negative (Neg-Trace)
[2022-11-23 11:01] LABS: Bacteria Urine None Seen (None Seen); Hyaline Casts Urine 0-2 /LPF (0-2); Squamous Epithelial Cell Urine 0-2 /HPF (0-2); WBC Urine 0-5 /HPF (0-5)
[2022-11-23 11:29] LABS: Alanine Aminotransferase 44 U/L (0-40); Albumin Level 4.2 g/dL (3.5-5.0); Alkaline Phosphatase 102 U/L (39-117); Anion Gap 12 (12-20); Aspartate Amino Transferase 28 U/L (5-37); Bilirubin Total 0.9 mg/dL (0.0-1.0); Blood Urea Nitrogen 20 mg/dL (9-16); Carbon Dioxide 29 mmol/L (22-29); Chloride 106 mmol/L (96-108); Cholesterol 146 mg/dL; Estimated Glomerular Filt Rate > 60; Glucose Fasting 94 mg/dL (60-99); HDL Cholesterol 51 mg/dL; LDL Cholesterol Calculated 84 mg/dl; Sodium 143 mmol/L (135-145); Total Protein 6.3 g/dL (6.5-8.0); Triglycerides 57 mg/dL
[2022-11-23 11:30] LABS: PSA,Total (Free>4and<10) 0.26 ng/mL (0.00-4.00)
[2022-11-23 11:50] LABS: Creatinine Urine 56.02 mg/dL; Microalbum/Creatinine Ratio Ur 24.9 ug/mg cr
[2022-11-23 11:55] LABS: Estimated Average Glucose 94 mg/dL; Hemoglobin A1c % 4.9 %
== END 2022-11-23 10:36 | disposition home or self-care (01) ==
LOC: HO.LNP 10:35
PROVIDERS: Visit Provider Internal Medicine
DX: Z12.5 Encounter for screening for malignant neoplasm of prostate (principal); I10 Essential (primary) hypertension; R73.03 Prediabetes; D69.6 Thrombocytopenia, unspecified; E78.6 Lipoprotein deficiency
CPT/HCPCS: 80053; 80061; 81001; 82043; 83036; 84153; 85025

== ENCOUNTER → 2022-12-10 11:15 | Outpatient (BNVA) | payer MEDICARE, OTHER, SELFPAY | PROVIDERS: PCP Internal Medicine; Visit Provider Internal Medicine | DX: G47.33 Obstructive sleep apnea (adult) (pediatric) (principal) | CPT/HCPCS: 99212 ==

== ENCOUNTER 2022-12-27 11:29 | Outpatient (REF) | payer MEDICARE, OTHER, SELFPAY ==
[2022-12-27 11:32] LABS: MANUAL DIFF FLAG NO
[2022-12-27 11:53] LABS: Appearance Urine Clear; Color Urine Yellow; Glucose Urine UA Negative (Negative); Leukocyte Esterase Urine Trace (Negative); Nitrite Urine Negative (Negative); PH 6.5 (5.0-9.0); Specific Gravity - Urine 1.015 (1.005-1.025); UMIC TRIGGER UACC YES; Urine Blood Negative (Negative); Urine Ketones Negative (Negative); Urine Protein Negative (Neg-Trace)
[2022-12-27 11:55] LABS: Bacteria Urine None Seen (None Seen); Hyaline Casts Urine 0-2 /LPF (0-2); RBC Urine 0-2 /HPF (0-2); Squamous Epithelial Cell Urine 0-2 /HPF (0-2); WBC Urine 0-5 /HPF (0-5)
[2022-12-27 11:58] LABS: Hematocrit 45.1 % (42.0-52.0); Hemoglobin 15.2 g/dl (14.0-18.0); Mean Corpuscular HGB Conc 33.7 g/dl (31.0-36.0); Mean Corpuscular Hemoglobin 30.7 pg (27.0-33.0); Mean Corpuscular Volume 91.1 fL (80.0-98.0); Red Blood Count 4.95 X10*6/uL (4.60-5.80); White Blood Count 5.8 X10*3/uL (4.8-10.8)
[2022-12-27 11:59] LABS: Basophils Percent Auto 0.3 % (0-2); Eosinophils Absolute Auto 0.3 X10*3/uL (0.0-0.4); Eosinophils Percent Auto 5.4 % (0-4); Imm Gran Abs Auto 0.03 X10*3/uL (0.00-0.03); Imm Gran Pct Auto 0.5 % (0.0-0.4); Lymphocytes Absolute Auto 1.3 X10*3/uL (1.2-4.9); Lymphocytes Percent Auto 22.2 % (20-40); Mean Platelet Volume 10.1 fL (9.4-12.4); Monocytes Absolute Auto 0.6 X10*3/uL (0.1-1.2); Monocytes Percent Auto 11.1 % (2-11); Neutrophils Absolute Auto 3.5 x10*3/uL (2.0-8.3); Neutrophils Percent Auto 60.5 % (45-73); Platelet Count 134 X10*3/uL (160-400); Red Cell Distribution Width 12.9 % (11.0-16.0)
== END 2022-12-27 11:30 | disposition home or self-care (01) ==
LOC: HO.LNP 11:29
PROVIDERS: Visit Provider Internal Medicine
DX: D70.9 Neutropenia, unspecified (principal); R31.9 Hematuria, unspecified
CPT/HCPCS: 81001; 85025

== ENCOUNTER → 2023-02-19 07:41 | Outpatient (REF) | payer MEDICARE, OTHER, SELFPAY ==
--- NOTE | 2023-02-19 07:44 | CA_ITS ---
Transthoracic Echocardiogram Patient (Last, First, Middle): Keven Aquino J Gender: Male Date of : 1945 Age: 77 Procedure Date: 02/19/2023 Procedure Type: Transthoracic Echocardiogram Location: OP Height: 172.72 cm Weight: 74.84 kg BSA: 1.88 m2 Heart Rate: 62 bpm BP: 120 / 78 mmHg Software Recruiter: SB Referring MD: Atilio Ball MD Symptoms: I42.9 - Cardiomyopathy, unspecified Study Quality: Adequate ECG Rhythm: Atrial Fibrillation Conclusions: - The left ventricular systolic function is low normal. The visually estimated ejection fraction is between 50-55%. - There is low normal right ventricular systolic function. - Mild biatrial enlargement. - There is mild dilatation of the ascending aorta measuring 4.00 cm. Findings Left Ventricle Normal left ventricular cavity size. There is mildly increased left ventricular wall thickness. The left ventricular systolic function is low normal. The visually estimated ejection fraction is between 50-55%. Diastolic function is indeterminate on the basis of available data. Right Ventricle Normal right ventricular cavity size. There is low normal right ventricular systolic function. Atria Mild biatrial enlargement. Aortic Valve There is a normal trileaflet aortic valve. There is no aortic valve stenosis. There is trace (trivial) aortic valve regurgitation. Mitral Valve The mitral valve appears normal. There is no mitral valve regurgitation. There is no mitral valve stenosis. Pulmonic Valve The pulmonic valve is likely normal. Tricuspid Valve Normal tricuspid valve structure. There is trace tricuspid valve regurgitation. There is no evidence of pulmonary hypertension. Great Vessels There is mild dilatation of the ascending aorta measuring 4.00 cm. Venous The inferior vena cava is normal in size and collapses less than 50% with inspiration. Pericardium/Pleural There is no evidence of pericardial effusion. Prior Study Comparison No significant change compared to prior study dated: 11/07/2021. Recommendations, Care & Conclusions No obvious valvular pathology seen on this study. Measurements 2D Linear Measurements IVSd: 1.04 0.6-0.9/0.6-1.0 cm LVIDd: 4.65 3.9-5.3/4.2-5.9 cm LVIDd Index: 2.47 2.4-3.2/2.2-3.1 cm/m2 LVIDs: 3.59 2.0-3.6 cm LVPWd: 1.10 0.7-1.1 cm LA Diam: 4.50 2.7-3.8/3.0-4.0 cm LAIDs Index: 2.39 1.5-2.3 cm/m2 LV Mass: 221.00 67-162/88-224 g LV Mass Index: 117.55 43-95/49-115 g/m2 LVOT Diam: 2.20 3.0+(-)1.3 cm 2D Systolic Function EF 4C: 54.10 >55% EF 2C: 57.10 >55% EF BiP: 55.50 >55% Mitral Valve MV Pk E: 0.74 E'Lateral: 12.50 E'Medial: 7.43 E/E' Med: 9.90 E/E' Lat: 5.90 Aortic Valve AoV Pk Benito: 0.98 AoV Pk Grad: 4.00 RENUKA: 3.06 LVOT LVOT Pk Benito: 0.79 LVOT Mn Benito: 0.58 LVOT VTI: 0.18 LVOT Pk Grad: 2.00 LVOT Mn Grad: 2.00 LVOT Diam: 2.20 LVOT Area: 3.80 Diastolic Function MV Pk E: 0.74 E'Medial: 7.43 E/E' Med: 9.90 E' Laterial: 12.50 E/E' Lat: 5.90 Right Ventricle TAPSE (mm): 16.60 TVS' Benito: 9.51 Tricuspid Valve RA Press: 8.00 Great Vessels Aorta Sinus of Valsalva: 3.30 2.0-3.5 cm Ao Asc: 4.00 2.1-3.4 cm Pulmonary Valve PV Pk Benito: 0.63 Peak PV Grad: 2.00 Updated in Other Vendor System with Status of Final Atilio Ball MD electronically signed on 02/20/2023 1:16:48 PM with status of Final
== END ==
LOC: HO.CARD 07:41
PROVIDERS: PCP Internal Medicine; Visit Provider Internal Medicine
DX: I42.9 Cardiomyopathy, unspecified (principal)
CPT/HCPCS: 93306

== ENCOUNTER → 2023-03-11 10:34 | Outpatient (BNVA) | payer MEDICARE, OTHER, SELFPAY | PROVIDERS: PCP Internal Medicine; Referring Provider Internal Medicine; Visit Provider Internal Medicine | DX: I48.19 Other persistent atrial fibrillation (principal); I10 Essential (primary) hypertension; I42.9 Cardiomyopathy, unspecified; G47.33 Obstructive sleep apnea (adult) (pediatric); R20.9 Unspecified disturbances of skin sensation | CPT/HCPCS: 99212 ==

== ENCOUNTER 2023-03-26 09:49 | Outpatient (REF) | payer MEDICARE, OTHER, SELFPAY ==
--- NOTE | ~2023-03-26 | US_ITS ---
EXAMINATION: Noninvasive assessment of the bilateral upper extremities with ARTERIAL DUPLEX. CLINICAL INFORMATION: Peripheral arterial disease TECHNIQUE: Duplex Doppler techniques with waveform analysis and measurement of velocities in the bilateral subclavian, axillary, brachial, radial and ulnar arteries were performed. COMPARISON: None FINDINGS: DIRECT DUPLEX DOPPLER FINDINGS: RIGHT ARM: Subclavian artery (proximal): 58.1 cm/s, phasicity: Biphasic Subclavian artery (mid): 71.5 cm/s, phasicity: Biphasic Subclavian artery (distal): 57.4 cm/s, phasicity: Biphasic Axillary artery: 72.1 cm/s, phasicity: Biphasic Brachial artery (proximal): 108 cm/s, phasicity: Triphasic Brachial artery (mid): 103 cm/s, phasicity: Triphasic Brachial artery (distal): 85.0 cm/s, phasicity: Triphasic Radial artery: 27.9 cm/s, phasicity: Triphasic Ulnar artery: 37.1 cm/s, phasicity: Biphasic LEFT ARM: Subclavian artery (proximal): 114 cm/s, phasicity: Biphasic Subclavian artery (mid): 61.7 cm/s, phasicity: Biphasic Subclavian artery (distal): 60.5 cm/s, phasicity: Biphasic Axillary artery: 92.0 cm/s, phasicity: Biphasic Brachial artery (proximal): 83.3 cm/s, phasicity: Biphasic Brachial artery (mid): 85.0 cm/s, phasicity: Biphasic Brachial artery (distal): 85.6 cm/s, phasicity: Biphasic Radial artery: 56.2 cm/s, phasicity: Triphasic Ulnar artery: 36.9 cm/s, phasicity: Biphasic US/US arterial duplex UE BI IMPRESSION: Unremarkable duplex arterial ultrasound of the bilateral upper extremities. No significant arterial stenosis or occlusion
== END 2023-03-26 09:50 | disposition home or self-care (01) ==
LOC: HO.US 09:49
PROVIDERS: PCP Internal Medicine; Visit Provider Internal Medicine
DX: I73.9 Peripheral vascular disease, unspecified (principal); I77.1 Stricture of artery; R20.9 Unspecified disturbances of skin sensation
CPT/HCPCS: 93930

== ENCOUNTER 2023-06-06 10:18 | Outpatient (AMB) | payer MEDICARE, OTHER, SELFPAY ==
[2023-06-06 10:38] VITALS: BP 140/80; PULSE 63; O2SAT 97; BMI 26.6
--- NOTE | 2023-06-06 10:38 | MHC.OFFVIS ---
Intake Vital Signs 06/06/23 10:38 Height 5 ft 8 in Weight 175 lb BMI 26.6 BP 140/80 H Blood Pressure Location Lt brachial Position Standing Pulse 63 Pulse Source Pulse Oximeter Pulse Oximetry (%) 97 Oxygen Delivery Method Room Air Intake Visit Reasons: Obstructive sleep apnea Intake Note: pt is here for follow up and states he is doing well with c-pap . Appraiser Irrigation Tax Required: No Allergies dorzolamide Allergy (Severe, Verified 06/06/23 11:12) Unknown valsartan Allergy (Severe, Verified 06/06/23 11:12) unknow lisinopril Allergy (Unknown, Verified 06/06/23 11:12) Unknown sulfamethoxazole [From Bactrim] Allergy (Unknown, Verified 06/06/23 11:12) Unknown trimethoprim [From Bactrim] Allergy (Unknown, Verified 06/06/23 11:12) Unknown Medication List - Last Reconciled 06/06/23 by Dot Webster MD apixaban (Eliquis) 5 mg PO BID cabergoline 0.5 mg PO 2XW diltiazem HCl ER 120 mg PO BID 90 days latanoprost 0.005% 1 drp ophthalmic (eye) QPM timolol 0.5% 1 drp ophthalmic (eye) DAILY vit C,J-Hf-sxqah-lutein-zeaxan 250-90-40-1 mg (PreserVision AREDS-2) 1 tab PO BID Do you need a note to return to daycare/school/sports/work: No HPI Obstructive sleep apnea HPI Details 78 YEARS OLD GENTLEMAN IS A CASE OF OBSTRUCTIVE SLEEP APNEA. HE IS HERE FOR 6 MONTHS FOLLOW-UP HE REPORTS THAT HE USES CPAP EVERY NIGHT, WITHOUT ANY ISSUE. HOWEVER HE IS ASKING IF HE COULD SKIP USING THE CPAP A FEW NIGHTS EVERY MONTH BECAUSE HE TRAVELS. HIS WEIGHT HAS BEEN STABLE. HE HAS NO NASAL CONGESTION, NO PROBLEM OF COUGH OR SHORTNESS OF BREATH. [facility] Medical History Glaucoma History of COVID-19 HTN (hypertension) Hx of bladder cancer Hx of gout Hx of renal calculi Pituitary tumor Seasonal allergies Sleep apnea Surgical History Hx of colonoscopy Hx of cystoscopy Hx of right inguinal hernia repair Family History Father No problems noted. Mother No problems noted. Brother Atrial fibrillation Social History Are you a primary hospice care sales consultant to a significant other at home: No Do you presently have visiting nurse or other home services: No Alcohol intake: never Patient Tobacco Use Status: Former Tobacco user Quit Date: Review of Systems Const All systems reviewed & are unremarkable except as noted in HPI and below Eyes Reports no additional complaints ENT Reports nasal congestion (Off and on due to seasonal allergies) Card Denies chest pain, Reports irregular heart rhythm and Denies leg edema Resp Reports no additional complaints, Denies cough and Denies wheezing GI Reports no additional complaints Reports no additional complaints Musc Reports no additional complaints Skin/Breast Reports system reviewed and no additional complaints, except as documented Neuro Reports no additional complaints Psych Reports no additional complaints Aller/Immun Denies wheezing Physical Exam Vital Signs: Last Vital Signs Pulse 63 06/06/23 10:38 BP 140/80 H 06/06/23 10:38 Pulse Ox 97 06/06/23 10:38 Oxygen Delivery Method Room Air 06/06/23 10:38 BMI result Body Mass Index 26.6 Const General: comfortable, no acute distress, alert and awake Orientation/consciousness: patient oriented x3 HEENT Head: Yes normal to inspection General nose exam: No nasal polyps present and No nasal discharge present Face and sinus: Yes sinuses nontender Mouth: oropharynx normal Throat: Yes posterior oropharynx normal Eyes General: appearance normal, both eyes and all related structures Neck Neck: Yes normal visual inspection, Yes no lymphadenopathy, Yes trachea midline and Yes no JVD Thyroid: Thyroid normal Chest Chest palpation & inspection: normal inspection of the chest, normal palpation of entire chest wall and no tenderness Resp Other: Percussion note resonant, breath sounds are equal on both sides, no wheezes or rhonchi. Cardio Palpation: normal PMI Rate: regular rate Rhythm: abnormal rhythm (Atrial fib) Heart sounds: no gallops and no murmurs GI Palpation (GI): Soft to palpation, nontender, No hepatosplenomegaly present and no masses Auscultation: normal bowel sounds Back/Spine/Pelvis Thoracic/Lumbar Spine: thoracic and lumbar spine normal to inspection Skin General skin exam: no rashes or lesions noted Neuro General: patient oriented x3 and no focal motor deficits Cranial nerves: Yes CN's II-XII intact bilaterally Extrem General: Yes normal to inspection, Yes no clubbing, cyanosis or edema and Yes no calf tenderness Psych Speech and movement: Normal speech and movement present Results Reviewed Results Reviewed: COMPLIANCE REPORT FOR THE LAST 30 NIGHTS IS REVIEWED USED 30/30 NIGHTS, 100%. AVERAGE USE PER NIGHT 6 HOURS 22 MINUTES. PRESSURE USED MOSTLY 10-12 CM WHICH IS WELL WITHIN THE RANGE. SOME AIR LEAK IS NOTED. RESIDUAL AHI 6.6 Assessment & Plan Assessment & Plan (1) JOCY (obstructive sleep apnea): Comment: PATIENT IS KNOWN TO HAVE OBSTRUCTIVE SLEEP APNEA, BEING TREATED WITH CPAP USAGE AT NIGHT. HE IS VERY COMPLIANT AND BENEFITS. COMMENDED FOR HER EXCELLENT COMPLIANCE, ADVISED TO KEEP ON USING IT EVERY NIGHT AT LEAST FOR. 6 HOURS PER NIGHT IF HE TRAVELS HE MAY SKIP USING FOR 3-4 NIGHTS PER MONTH,. BUT NOT MORE THAN THAT. HE KEEPS ON GETTING SUPPLIES REGULARLY. Code(s): G47.33 - Obstructive sleep apnea (adult) (pediatric) Coding Level of Care Code Est Pt Level 3 (35833) Diagnoses JOCY (obstructive sleep apnea) G47.33
== END 2023-06-06 11:15 | disposition home or self-care (01) ==
PROVIDERS: PCP Internal Medicine; Visit Provider Internal Medicine
DX: G47.33 Obstructive sleep apnea (adult) (pediatric) (principal)
CPT/HCPCS: 99213

== ENCOUNTER → 2023-06-06 10:18 | Outpatient (BNVA) | payer MEDICARE, OTHER, SELFPAY | PROVIDERS: PCP Internal Medicine; Visit Provider Internal Medicine | DX: G47.33 Obstructive sleep apnea (adult) (pediatric) (principal) | CPT/HCPCS: 99212 ==

== ENCOUNTER 2023-06-25 10:46 | Outpatient (AMB) | payer MEDICARE, OTHER, SELFPAY ==
[2023-06-25 11:03] VITALS: BP 120/78; PULSE 77; TEMP 36.7; O2SAT 97; BMI 26.3
--- NOTE | 2023-06-25 11:03 | MHC.OFFVIS ---
Intake Vital Signs 06/25/23 11:03 Height 5 ft 8 in Weight 173 lb 1.006 oz BMI 26.3 BP 120/78 Blood Pressure Location Rt brachial Position Sitting Pulse 77 Pulse Source Pulse Oximeter Temp 98.1 F Temp Source Skin Pulse Oximetry (%) 97 Intake Visit Reasons: disturbances of skin sensation/? Raynauds Intake Note: New pt presents today for consult. Reports having gout C/o pain in knees and hands. Bl fingers and toes getting numb and cold. Reports this has gotten better since stopping metoprolol Entry Level Recruiter Required: No Accompanied by: Self / Same As Patient Allergies dorzolamide Allergy (Severe, Verified 06/25/23 11:06) Unknown valsartan Allergy (Severe, Verified 06/25/23 11:06) unknow lisinopril Allergy (Unknown, Verified 06/25/23 11:06) Unknown sulfamethoxazole [From Bactrim] Allergy (Unknown, Verified 06/25/23 11:06) Unknown trimethoprim [From Bactrim] Allergy (Unknown, Verified 06/25/23 11:06) Unknown Medication List - Last Reconciled 06/25/23 by Enrique Ramires MD apixaban (Eliquis) 5 mg PO BID cabergoline 0.5 mg PO 2XW celecoxib 200 mg PO DAILY PRN diltiazem HCl ER 120 mg PO BID 90 days fluticasone propionate 50 mcg/actuation 1 spray intranasal DAILY PRN latanoprost 0.005% 1 drp ophthalmic (eye) QPM tadalafil 10 mg PO DAILY PRN timolol 0.5% 1 drp ophthalmic (eye) DAILY vit C,F-Dd-nmbez-lutein-zeaxan 250-90-40-1 mg (PreserVision AREDS-2) 1 tab PO BID HPI HPI Comments History of Present Illness Details This is a 78-year-old male with a past medical history of AFib on Eliquis who presents for evaluation of Raynaud's phenomenon. The condition started back last winter when he noticed that the tips of his fingers and toes would change color to white in the cold. This would be associated with some tingling and numbness. This would happen multiple times of the day. Sometimes if he reaches into the freezer he would have an episode. He would put his hands around a warm coffee cup to get it better. He denied the color ever changing to blue or purple. He cannot recall an instance when he could not reverse the color back to normal. He was wearing gloves more often out in the cold. He was evaluated by his chief port director 03/10 and at that time metoprolol was switched to Cardizem. Patient stated that since that change was made he has not had any recurrent episodes. He is unaware of any family history of autoimmune rheumatic disease. Denies any history of DVT/PE [facility] Medical History Glaucoma History of COVID-19 HTN (hypertension) Hx of bladder cancer Hx of gout Hx of renal calculi Pituitary tumor Seasonal allergies Sleep apnea Surgical History Hx of colonoscopy Hx of cystoscopy Hx of right inguinal hernia repair Family History Father No problems noted. Mother No problems noted. Brother Atrial fibrillation Social History (Updated 06/25/23 @ 11:15 by FLAQUITA Fleming) Household Members: Spouse Are you a primary healthcare applications analyst to a significant other at home: No Do you presently have visiting nurse or other home services: No Alcohol intake: current Alcohol intake frequency: does not drink Patient Tobacco Use Status: Former Tobacco user Quit Date: Review of Systems Musc Denies arthralgias and Reports tingling Skin/Breast Reports change in pigmentation Neuro Reports tingling Physical Exam Vital Signs: Last Vital Signs Temp 98.1 F 06/25/23 11:03 Pulse 77 06/25/23 11:03 BP 120/78 06/25/23 11:03 Pulse Ox 97 06/25/23 11:03 BMI result Body Mass Index 26.3 Const General: cooperative, healthy appearing and comfortable Nutritional Appearance: average body habitus Orientation/consciousness: patient oriented x3 Limitations: no limitations HEENT Head: Yes normocephalic and Yes atraumatic Mouth: moist mucous membranes Resp Effort & Inspection: normal respiratory effort and able to speak in complete sentences Neuro General: patient oriented x3 Extrem Other: Osteoarthritic changes of both hands with no active synovitis Normal nailfold capillaroscopy of finger and toenails Assessment & Plan Assessment & Plan (1) Raynaud's phenomenon: Code(s): I73.00 - Raynaud's syndrome without gangrene Qualifiers: Raynaud?s-associated gangrene presence: without gangrene Qualified Code(s): I73.00 - Raynaud's syndrome without gangrene Plan: This is a 78-year-old male referred by his chief port director for evaluation of Raynaud's. Symptoms started last winter, with fingers and toes changing color to white it associated with numbness. Symptoms improved when metoprolol was switched to Cardizem in 03/10. Patient has normal nailfold capillaroscopy and I do not see any obvious signs of underlying autoimmune rheumatic disease. I discussed conservative measures for Raynaud's such as maintaining core and extremity temperature warm, using gloves and glove warmers as needed. Continue Cardizem. Will re-evaluate patient in winter time to assess the severity of his Raynaud's. Coding Level of Care Code Est Pt Level 3 (05465) Diagnoses Raynaud's phenomenon I73.00 Raynaud?s-associated gangrene presence: without gangrene
== END 2023-06-25 11:50 | disposition home or self-care (01) ==
PROVIDERS: PCP Internal Medicine; Visit Provider Student in an Organized Health Care Education/Training Program
DX: I73.00 Raynaud's syndrome without gangrene (principal)
CPT/HCPCS: 99213

== ENCOUNTER → 2023-06-25 10:46 | Outpatient (BNVA) | payer MEDICARE, OTHER, SELFPAY | PROVIDERS: PCP Internal Medicine; Visit Provider Student in an Organized Health Care Education/Training Program | DX: I73.00 Raynaud's syndrome without gangrene (principal) | CPT/HCPCS: 99212 ==

== ENCOUNTER 2023-07-18 12:12 | Outpatient (AMB) | payer MEDICARE, OTHER, SELFPAY ==
--- NOTE | 2023-07-18 12:32 | A.OFFVIS_ITS ---
Intake Vital Signs 07/18/23 12:33 Height 5 ft 8 in Weight 172 lb 13.478 oz BMI 26.3 BP 108/60 Blood Pressure Location Lt brachial Position Sitting Pulse 62 Intake Visit Reasons: follow up appt after test Intake Note: follow up Revenue Tax Specialist Required: No Accompanied by: Self / Same As Patient Allergies dorzolamide Allergy (Severe, Verified 07/18/23 12:34) Unknown valsartan Allergy (Severe, Verified 07/18/23 12:34) unknow lisinopril Allergy (Unknown, Verified 07/18/23 12:34) Unknown sulfamethoxazole [From Bactrim] Allergy (Unknown, Verified 07/18/23 12:34) Unknown trimethoprim [From Bactrim] Allergy (Unknown, Verified 07/18/23 12:34) Unknown Medication List - Last Reconciled 07/18/23 by Atilio Ball MD apixaban (Eliquis) 5 mg PO BID cabergoline 0.5 mg PO 2XW diltiazem HCl ER 120 mg PO BID 90 days fluticasone propionate 50 mcg/actuation 1 spray intranasal DAILY PRN latanoprost 0.005% 1 drp ophthalmic (eye) QPM tadalafil 10 mg PO DAILY PRN timolol 0.5% 1 drp ophthalmic (eye) DAILY vit C,L-Dc-lmjtp-lutein-zeaxan 250-90-40-1 mg (PreserVision AREDS-2) 1 tab PO BID HPI HPI Comments History of Present Illness Details Keven returns for follow-up regarding atrial fibrillation. To recall, in the past, he came for colonoscopy and found to have atrial fibrillation which was a new finding. Overall, he states he is doing fine. No clear-cut complaints. Sometimes, when he is walking up inclines he may feel short of breath but no other cardiac concerns. Last time, he had reported that Overall, generally doing well. No complaints like angina or shortness of breath or in fact anything cardiac related. In the past, we have discussed cardioversion but he worse rather not inclined and hence he is managed by rate control only. He was complaining of cold fingertips last visit. Then we stopped the metoprolol and put him on diltiazem. After that, not much of symptoms but also the weather got warm and hence not clear. Any case, we did send him to dermatology for evaluation. [facility] Medical History Glaucoma History of COVID-19 HTN (hypertension) Hx of bladder cancer Hx of gout Hx of renal calculi Pituitary tumor Seasonal allergies Sleep apnea Surgical History Hx of colonoscopy Hx of cystoscopy Hx of right inguinal hernia repair Family History Father No problems noted. Mother No problems noted. Brother Atrial fibrillation Social History Household Members: Spouse Are you a primary child care associate teacher to a significant other at home: No Do you presently have visiting nurse or other home services: No Alcohol intake: current Alcohol intake frequency: does not drink Patient Tobacco Use Status: Former Tobacco user Quit Date: Review of Systems Const Denies weakness ENT Denies dizziness Card Denies chest pain, Denies chest pain with activity, Denies syncope, Denies rapid heart rate, Denies pedal edema, Denies edema, Denies leg edema, Denies lightheadedness, Denies palpitations, Denies dyspnea, Denies dyspnea on exertion and Denies orthopnea Resp Denies cough, Denies dyspnea and Denies dyspnea on exertion GI Denies hematochezia and Denies change in stool character Musc Denies abnormal gait, Denies muscle cramps, Denies muscle weakness, Denies numbness, Denies radiating pain into limb and Denies tingling Neuro Denies abnormal gait, Denies dizziness, Denies syncope, Denies numbness, Denies tingling and Denies weakness Endo Denies palpitations Physical Exam Vital Signs: Last Vital Signs Pulse 62 07/18/23 12:33 BP 108/60 07/18/23 12:33 BMI result Body Mass Index 26.3 Const General: comfortable and no acute distress Orientation/consciousness: patient oriented x3 HEENT Other: Unremarkable Head: Yes normal to inspection Neck Neck: Yes normal visual inspection Chest Chest palpation & inspection: normal inspection of the chest Resp Auscultation: clear to auscultation bilaterally Cardio Palpation: normal PMI Heart sounds: S1 normal heart sound present, S2 normal heart sound present, no gallops, no murmurs and no rubs GI Palpation (GI): Soft to palpation Back/Spine/Pelvis Other: unremarkable Skin General skin exam: no rashes or lesions noted Neuro General: patient oriented x3 Extrem General: Yes normal to inspection Psych Mental Status: mental status grossly normal Assessment & Plan Assessment & Plan (1) Persistent atrial fibrillation: Code(s): I48.19 - Other persistent atrial fibrillation Plan: Per patient preference, did not undergo any cardioversion and maintained on rate control only. Continue diltiazem. Continue anticoagulation. (2) Essential hypertension: Code(s): I10 - Essential (primary) hypertension Plan: Stable. No changes. (3) Cardiomyopathy: Code(s): I42.9 - Cardiomyopathy, unspecified Plan: LVEF has been around 45-50%/50-55%. No clinical congestive heart failure. Probably all related to atrial fibrillation. In the past, perfusion imaging was unremarkable. (4) JOCY (obstructive sleep apnea): Comment: PATIENT IS KNOWN TO HAVE OBSTRUCTIVE SLEEP APNEA, BEING TREATED WITH CPAP USAGE AT NIGHT. HE IS VERY COMPLIANT AND BENEFITS. COMMENDED FOR HER EXCELLENT COMPLIANCE, ADVISED TO KEEP ON USING IT EVERY NIGHT AT LEAST FOR. 6 HOURS PER NIGHT IF HE TRAVELS HE MAY SKIP USING FOR 3-4 NIGHTS PER MONTH,. BUT NOT MORE THAN THAT. HE KEEPS ON GETTING SUPPLIES REGULARLY. Code(s): G47.33 - Obstructive sleep apnea (adult) (pediatric) Plan: Continue CPAP. Coding Level of Care Code Est Pt Level 4 (56505) Diagnoses Persistent atrial fibrillation I48.19 Essential hypertension I10 Cardiomyopathy I42.9 JOCY (obstructive sleep apnea) G47.33
[2023-07-18 12:33] VITALS: BP 108/60; PULSE 62; BMI 26.3
== END 2023-07-18 12:48 | disposition home or self-care (01) ==
PROVIDERS: PCP Internal Medicine; Referring Provider Internal Medicine; Visit Provider Internal Medicine
DX: I48.19 Other persistent atrial fibrillation (principal); I10 Essential (primary) hypertension; I42.9 Cardiomyopathy, unspecified; G47.33 Obstructive sleep apnea (adult) (pediatric)
CPT/HCPCS: 99214

== ENCOUNTER → 2023-07-18 12:12 | Outpatient (BNVA) | payer MEDICARE, OTHER, SELFPAY | PROVIDERS: PCP Internal Medicine; Referring Provider Internal Medicine; Visit Provider Internal Medicine | DX: I48.19 Other persistent atrial fibrillation (principal); I10 Essential (primary) hypertension; I42.9 Cardiomyopathy, unspecified; G47.33 Obstructive sleep apnea (adult) (pediatric); Z79.01 Long term (current) use of anticoagulants; Z79.899 Other long term (current) drug therapy; Z99.89 Dependence on other enabling machines and devices | CPT/HCPCS: 99212 ==

== ENCOUNTER 2023-10-30 12:45 | Outpatient (AMB) | payer MEDICARE, OTHER, SELFPAY ==
--- NOTE | 2023-10-30 12:53 | MHC.OFFVIS ---
Intake Vital Signs 10/30/23 13:00 Height 5 ft 8 in Weight 176 lb 5.917 oz BMI 26.8 BP 112/90 H Blood Pressure Location Lt brachial Position Sitting Pulse 72 Pulse Source Pulse Oximeter Temp 97.5 F Temp Source Skin Pulse Oximetry (%) 98 Oxygen Delivery Method Room Air Intake Visit Reasons: Raynaud's Intake Note: Patient last seen 06/25/23, presents today for Raynaud's follow up. Wellness Ambassador Required: No Accompanied by: Self / Same As Patient Allergies dorzolamide Allergy (Severe, Verified 10/30/23 12:54) Unknown valsartan Allergy (Severe, Verified 10/30/23 12:54) unknow lisinopril Allergy (Unknown, Verified 10/30/23 12:54) Unknown sulfamethoxazole [From Bactrim] Allergy (Unknown, Verified 10/30/23 12:54) Unknown trimethoprim [From Bactrim] Allergy (Unknown, Verified 10/30/23 12:54) Unknown Medication List - Last Reconciled 10/30/23 by Enrique Ramires MD apixaban (Eliquis) 5 mg PO BID cabergoline 0.5 mg PO 2XW diltiazem HCl ER 120 mg PO BID 90 days fluticasone propionate 50 mcg/actuation 1 spray intranasal DAILY PRN latanoprost 0.005% 1 drp ophthalmic (eye) QPM tadalafil 10 mg PO DAILY PRN timolol 0.5% 1 drp ophthalmic (eye) DAILY vit C,X-Qg-skxnn-lutein-zeaxan 250-90-40-1 mg (PreserVision AREDS-2) 1 tab PO BID HPI HPI Comments History of Present Illness Details 78-year-old male with Raynaud's returns for follow-up. States that he feels well overall. States that he gets Raynaud's episodes about once a month. He is careful with keeping his core body temperature warm and wearing gloves. Has not had any along the Raynaud's episodes. He walks daily for 2 miles. Remains on diltiazem. Initial history: This is a 78-year-old male with a past medical history of AFib on Eliquis who presents for evaluation of Raynaud's phenomenon. The condition started back last winter when he noticed that the tips of his fingers and toes would change color to white in the cold. This would be associated with some tingling and numbness. This would happen multiple times of the day. Sometimes if he reaches into the freezer he would have an episode. He would put his hands around a warm coffee cup to get it better. He denied the color ever changing to blue or purple. He cannot recall an instance when he could not reverse the color back to normal. He was wearing gloves more often out in the cold. He was evaluated by his tongue and groove machine operator 03/10 and at that time metoprolol was switched to Cardizem. Patient stated that since that change was made he has not had any recurrent episodes. He is unaware of any family history of autoimmune rheumatic disease. Denies any history of DVT/PE [facility] Medical History HTN (hypertension) Hx of gout Hx of renal calculi Seasonal allergies Hx of bladder cancer History of COVID-19 Glaucoma Pituitary tumor Sleep apnea Surgical History Hx of cystoscopy Hx of right inguinal hernia repair Hx of colonoscopy Family History Father No problems noted. Mother No problems noted. Brother Atrial fibrillation Social History Household Members: Spouse Are you a primary residential care facility manager to a significant other at home: No Do you presently have visiting nurse or other home services: No Alcohol intake: current Alcohol intake frequency: does not drink Patient Tobacco Use Status: Former Tobacco user Quit Date: Review of Systems [facility] [place] Denies arthralgias Physical Exam Vital Signs: Last Vital Signs Temp 97.5 F 10/30/23 13:00 Pulse 72 10/30/23 13:00 BP 112/90 H 10/30/23 13:00 Pulse Ox 98 10/30/23 13:00 Oxygen Delivery Method Room Air 10/30/23 13:00 BMI result Body Mass Index 26.8 Const General: cooperative, healthy appearing and comfortable Nutritional Appearance: average body habitus Orientation/consciousness: patient oriented x3 Limitations: no limitations HEENT Head: Yes normocephalic and Yes atraumatic Mouth: moist mucous membranes Resp Effort & Inspection: normal respiratory effort and able to speak in complete sentences Neuro General: patient oriented x3 Extrem Other: Osteoarthritic changes of both hands with no active synovitis Normal nailfold capillaroscopy of finger and toenails Assessment & Plan Assessment & Plan (1) Raynaud's phenomenon: Code(s): I73.00 - Raynaud's syndrome without gangrene Qualifiers: Raynaud?s-associated gangrene presence: without gangrene Qualified Code(s): I73.00 - Raynaud's syndrome without gangrene Plan: This is a 78-year-old male with Raynaud's who presents for follow-up. His Raynaud symptoms is well controlled with conservative measures. He is On Cardizem prescribed by cardiology. I do not see any signs of an autoimmune rheumatic disease. Advised patient to call the clinic if he has any worsening Raynaud's symptoms. Follow-up in 1 year Plan I spent 15 minutes reviewing patient's chart, evaluating patient, counseling patient and documenting in the chart Coding Level of Care Code Est Pt Level 3 (44361) Diagnoses Raynaud's phenomenon without gangrene I73.00 Raynaud?s-associated gangrene presence: without gangrene
[2023-10-30 13:00] VITALS: BP 112/90; PULSE 72; TEMP 36.4; O2SAT 98; BMI 26.8
== END 2023-10-30 13:12 | disposition home or self-care (01) ==
PROVIDERS: PCP Internal Medicine; Visit Provider Student in an Organized Health Care Education/Training Program
DX: I73.00 Raynaud's syndrome without gangrene (principal)
CPT/HCPCS: 99213

== ENCOUNTER → 2023-10-30 12:45 | Outpatient (BNVA) | payer MEDICARE, OTHER, SELFPAY | PROVIDERS: PCP Internal Medicine; Visit Provider Student in an Organized Health Care Education/Training Program | DX: I73.00 Raynaud's syndrome without gangrene (principal) | CPT/HCPCS: 99212 ==

== ENCOUNTER 2023-11-26 10:45 | Outpatient (REF) | payer MEDICARE, OTHER, SELFPAY ==
[2023-11-26 10:49] LABS: MANUAL DIFF FLAG NO
[2023-11-26 10:52] LABS: Basophils Percent Auto 0.4 % (0-2); Eosinophils Absolute Auto 0.3 X10*3/uL (0.0-0.4); Eosinophils Percent Auto 4.9 % (0-4); Hematocrit 46.2 % (42.0-52.0); Hemoglobin 15.8 g/dl (14.0-18.0); Imm Gran Abs Auto 0.03 X10*3/uL (0.00-0.03); Imm Gran Pct Auto 0.6 % (0.0-0.4); Lymphocytes Absolute Auto 1.3 X10*3/uL (1.2-4.9); Lymphocytes Percent Auto 24.3 % (20-40); Mean Corpuscular HGB Conc 34.2 g/dl (31.0-36.0); Mean Corpuscular Hemoglobin 31.3 pg (27.0-33.0); Mean Corpuscular Volume 91.5 fL (80.0-98.0); Mean Platelet Volume 9.9 fL (9.4-12.4); Monocytes Absolute Auto 0.5 X10*3/uL (0.1-1.2); Monocytes Percent Auto 9.2 % (2-11); Neutrophils Absolute Auto 3.3 x10*3/uL (2.0-8.3); Neutrophils Percent Auto 60.6 % (45-73); Platelet Count 135 X10*3/uL (160-400); Red Blood Count 5.05 X10*6/uL (4.60-5.80); Red Cell Distribution Width 12.9 % (11.0-16.0); White Blood Count 5.4 X10*3/uL (4.8-10.8)
[2023-11-26 10:54] LABS: Appearance Urine Clear; Color Urine Yellow; Glucose Urine UA Negative (Negative); Leukocyte Esterase Urine Negative (Negative); Nitrite Urine Negative (Negative); PH 5.5 (5.0-9.0); UMIC TRIGGER UACC YES; Urine Ketones 15 mg/dL (Negative); Urine Protein Trace mg/dL (Neg-Trace)
[2023-11-26 11:07] LABS: Bacteria Urine None Seen (None Seen); Calcium Oxalate Crystals Urine Present; Hyaline Casts Urine 0-2 /LPF (0-2); RBC Urine 0-2 /HPF (0-2); Squamous Epithelial Cell Urine 0-2 /HPF (0-2); WBC Urine 0-5 /HPF (0-5)
[2023-11-26 11:22] LABS: Urine Blood Trace (Negative)
[2023-11-26 11:29] LABS: Estimated Average Glucose 100 mg/dL; Hemoglobin A1c % 5.1 % (<6.0)
[2023-11-26 11:37] LABS: Alanine Aminotransferase 26 U/L (0-40); Albumin Level 4.3 g/dL (3.5-5.0); Alkaline Phosphatase 93 U/L (39-117); Anion Gap 11 (12-20); Aspartate Amino Transferase 22 U/L (5-37); Bilirubin Total 0.6 mg/dL (0.0-1.0); Blood Urea Nitrogen 24 mg/dL (9-16); Calcium 9.3 mg/dL (8.4-10.2); Carbon Dioxide 28 mmol/L (22-29); Chloride 106 mmol/L (96-108); Cholesterol 170 mg/dL (<200); Estimated Glomerular Filt Rate > 60; Glucose Fasting 94 mg/dL (60-99); HDL Cholesterol 50 mg/dL (>40); LDL Cholesterol Calculated 108 mg/dL (<100); Potassium 4.1 mmol/L (3.3-5.1); Sodium 141 mmol/L (135-145); Total Protein 6.7 g/dL (6.5-8.0); Triglycerides 64 mg/dL (<150)
[2023-11-26 11:47] LABS: PSA,Total (Free>4and<10) 0.36 ng/mL (0.00-4.00)
[2023-11-26 12:13] LABS: Creatinine Urine 130.46 mg/dL; Microalbum/Creatinine Ratio Ur 16.8 ug/mg cr (<30)
== END 2023-11-26 10:46 | disposition home or self-care (01) ==
LOC: HO.LNP 10:45
PROVIDERS: Visit Provider Internal Medicine
DX: Z12.5 Encounter for screening for malignant neoplasm of prostate (principal); I10 Essential (primary) hypertension; D69.6 Thrombocytopenia, unspecified; D70.9 Neutropenia, unspecified; R73.03 Prediabetes
CPT/HCPCS: 80053; 80061; 81001; 82043; 82570; 83036; 84153; 85025

== ENCOUNTER 2023-12-03 10:38 | Outpatient (AMB) | payer MEDICARE, OTHER, SELFPAY ==
--- NOTE | 2023-12-03 10:44 | MHC.OFFVIS ---
Intake Vital Signs 12/03/23 10:45 Height 5 ft 8 in Weight 173 lb 1.006 oz BMI 26.3 BP 120/70 Blood Pressure Location Lt brachial Position Sitting Pulse 73 Pulse Source Pulse Oximeter Pulse Oximetry (%) 98 Oxygen Delivery Method Room Air Intake Visit Reasons: Obstructive sleep apnea Intake Note: pt is here for follow up of JOCY, using c-pap. Stereo Compiler Required: No Allergies dorzolamide Allergy (Severe, Verified 12/03/23 11:06) Unknown valsartan Allergy (Severe, Verified 12/03/23 11:06) unknow lisinopril Allergy (Unknown, Verified 12/03/23 11:06) Unknown sulfamethoxazole [From Bactrim] Allergy (Unknown, Verified 12/03/23 11:06) Unknown trimethoprim [From Bactrim] Allergy (Unknown, Verified 12/03/23 11:06) Unknown Medication List - Last Reconciled 12/03/23 by Dot Webster MD apixaban (Eliquis) 5 mg PO BID 90 days cabergoline 0.5 mg PO 2XW diltiazem HCl ER 120 mg PO BID 90 days latanoprost 0.005% 1 drp ophthalmic (eye) QPM tadalafil 10 mg PO DAILY PRN timolol 0.5% 1 drp ophthalmic (eye) DAILY vit C,G-Kp-yrssj-lutein-zeaxan 250-90-40-1 mg (PreserVision AREDS-2) 1 tab PO BID Do you need a note to return to daycare/school/sports/work: No HPI Obstructive sleep apnea HPI Details Keven Cade 78 years old pleasant gentleman, comes for follow-up after 6 months for his sleep apnea. He has been using CPAP very regularly and sleeps well, every night. Denies any issues with the CPAP device are the mask. He sleeps at least for 6 hours. Denies any dryness of the mouth, .and denies daytime sleepiness Weight has been stable. His the CPAP model is old, and does not transmit the information for compliance. We have asked the DME provider to, send him a card to record the compliance data. [facility] Medical History HTN (hypertension) Hx of gout Hx of renal calculi Seasonal allergies Hx of bladder cancer History of COVID-19 Glaucoma Pituitary tumor Sleep apnea Surgical History Hx of cystoscopy Hx of right inguinal hernia repair Hx of colonoscopy Family History Father No problems noted. Mother No problems noted. Brother Atrial fibrillation Social History Household Members: Spouse Are you a primary care management assistant to a significant other at home: No Do you presently have visiting nurse or other home services: No Alcohol intake: current Alcohol intake frequency: does not drink Patient Tobacco Use Status: Former Tobacco user Quit Date: Review of Systems Const All systems reviewed & are unremarkable except as noted in HPI and below Eyes Reports no additional complaints ENT Reports nasal congestion (Off and on due to seasonal allergies) Card Denies chest pain, Reports irregular heart rhythm and Denies leg edema Resp Reports no additional complaints, Denies cough and Denies wheezing GI Reports no additional complaints Reports no additional complaints Musc Reports no additional complaints Skin/Breast Reports system reviewed and no additional complaints, except as documented Neuro Reports no additional complaints Psych Reports no additional complaints Aller/Immun Denies wheezing Physical Exam Vital Signs: Last Vital Signs Pulse 73 12/03/23 10:45 BP 120/70 12/03/23 10:45 Pulse Ox 98 12/03/23 10:45 Oxygen Delivery Method Room Air 12/03/23 10:45 BMI result Body Mass Index 26.3 Const General: comfortable, no acute distress, alert and awake Orientation/consciousness: patient oriented x3 HEENT Head: Yes normal to inspection General nose exam: No nasal polyps present and No nasal discharge present Face and sinus: Yes sinuses nontender Mouth: oropharynx normal Throat: Yes posterior oropharynx normal Eyes General: appearance normal, both eyes and all related structures Neck Neck: Yes normal visual inspection, Yes no lymphadenopathy, Yes trachea midline and Yes no JVD Thyroid: Thyroid normal Chest Chest palpation & inspection: normal inspection of the chest, normal palpation of entire chest wall and no tenderness Resp Other: Percussion note resonant, breath sounds are equal on both sides, no wheezes or rhonchi. Cardio Palpation: normal PMI Rate: regular rate Rhythm: abnormal rhythm (Atrial fib) Heart sounds: no gallops and no murmurs GI Palpation (GI): Soft to palpation, nontender, No hepatosplenomegaly present and no masses Auscultation: normal bowel sounds Back/Spine/Pelvis Thoracic/Lumbar Spine: thoracic and lumbar spine normal to inspection Skin General skin exam: no rashes or lesions noted Neuro General: patient oriented x3 and no focal motor deficits Cranial nerves: Yes CN's II-XII intact bilaterally Extrem General: Yes normal to inspection, Yes no clubbing, cyanosis or edema and Yes no calf tenderness Psych Speech and movement: Normal speech and movement present Assessment & Plan Assessment & Plan (1) JOCY (obstructive sleep apnea): Comment: PATIENT IS KNOWN TO HAVE OBSTRUCTIVE SLEEP APNEA, BEING TREATED WITH CPAP USAGE AT NIGHT. HE IS VERY COMPLIANT AND BENEFITS. Code(s): G47.33 - Obstructive sleep apnea (adult) (pediatric) Plan: COMMENDED FOR HIS EXCELLENT COMPLIANCE, ADVISED TO KEEP ON USING IT EVERY NIGHT AT LEAST FOR. 6 HOURS PER NIGHT IF HE TRAVELS HE MAY SKIP USING FOR 3-4 NIGHTS PER MONTH,. BUT NOT MORE THAN THAT. HE KEEPS ON GETTING SUPPLIES REGULARLY. Coding Level of Care Code Est Pt Level 3 (07401) Diagnoses JOCY (obstructive sleep apnea) G47.33
[2023-12-03 10:45] VITALS: BP 120/70; PULSE 73; O2SAT 98; BMI 26.3
== END 2023-12-03 11:07 | disposition home or self-care (01) ==
PROVIDERS: PCP Internal Medicine; Visit Provider Internal Medicine
DX: G47.33 Obstructive sleep apnea (adult) (pediatric) (principal)
CPT/HCPCS: 99213

== ENCOUNTER → 2023-12-03 10:38 | Outpatient (BNVA) | payer MEDICARE, OTHER, SELFPAY | PROVIDERS: PCP Internal Medicine; Visit Provider Internal Medicine | DX: G47.33 Obstructive sleep apnea (adult) (pediatric) (principal); Z99.89 Dependence on other enabling machines and devices | CPT/HCPCS: 99212 ==

== ENCOUNTER 2023-12-10 15:00 | Outpatient (AMB) | payer MEDICARE, OTHER, SELFPAY ==
[2023-12-10 15:16] VITALS: BP 128/78; PULSE 69; BMI 26.1
--- NOTE | 2023-12-10 15:16 | A.OFFVIS_ITS ---
Intake Vital Signs 12/10/23 15:16 Height 5 ft 8 in Weight 171 lb 15.369 oz BMI 26.1 BP 128/78 Blood Pressure Location Lt brachial Position Sitting Pulse 69 Intake Visit Reasons: f/u chest pains Intake Note: follow up Science Writer Required: No Accompanied by: Self / Same As Patient Allergies dorzolamide Allergy (Severe, Verified 12/10/23 15:16) Unknown valsartan Allergy (Severe, Verified 12/10/23 15:16) unknow lisinopril Allergy (Unknown, Verified 12/10/23 15:16) Unknown sulfamethoxazole [From Bactrim] Allergy (Unknown, Verified 12/10/23 15:16) Unknown trimethoprim [From Bactrim] Allergy (Unknown, Verified 12/10/23 15:16) Unknown Medication List - Last Reconciled 12/10/23 by Atilio Ball MD apixaban (Eliquis) 5 mg PO BID 90 days cabergoline 0.5 mg PO 2XW diltiazem HCl ER 120 mg PO BID 90 days latanoprost 0.005% 1 drp ophthalmic (eye) QPM tadalafil 10 mg PO DAILY PRN timolol 0.5% 1 drp ophthalmic (eye) DAILY vit C,F-Zr-pcclx-lutein-zeaxan 250-90-40-1 mg (PreserVision AREDS-2) 1 tab PO BID HPI HPI Comments History of Present Illness Details Keven returns for follow-up regarding atrial fibrillation. To recall, in the past, he came for colonoscopy and found to have atrial fibrillation which was a new finding. In September, he was apparently doing some strenuous physical work and at that time noticed some jaw pain. However, it happened only once and no recurrence after that. After that, he is essentially back to his normal self. With regard to the atrial fibrillation, we have discussed about cardioversion but he was not inclined and hence it was rather managed by rate control. That has not really been bothering him. With severe exertion, he can feel short of breath. He was complaining of cold fingertips previously. Then we stopped the metoprolol and put him on diltiazem. After that, not much of symptoms but also the weather got warm and hence not clear. He was then seen by rheumatology and the last note states that he has Raynaud's phenomenon. PFS Medical History HTN (hypertension) Hx of gout Hx of renal calculi Seasonal allergies Hx of bladder cancer History of COVID-19 Glaucoma Pituitary tumor Sleep apnea Surgical History Hx of cystoscopy Hx of right inguinal hernia repair Hx of colonoscopy Family History Father No problems noted. Mother No problems noted. Brother Atrial fibrillation Social History Household Members: Spouse Are you a primary primary care nurse practitioner to a significant other at home: No Do you presently have visiting nurse or other home services: No Alcohol intake: current Alcohol intake frequency: does not drink Patient Tobacco Use Status: Former Tobacco user Quit Date: Review of Systems Const Denies weakness ENT Denies dizziness Card Denies chest pain, Denies chest pain with activity, Denies syncope, Denies rapid heart rate, Denies pedal edema, Denies edema, Denies leg edema, Denies lightheadedness, Denies palpitations, Denies dyspnea, Denies dyspnea on exertion and Denies orthopnea Resp Denies cough, Denies dyspnea and Denies dyspnea on exertion GI Denies hematochezia and Denies change in stool character Musc Denies abnormal gait, Denies muscle cramps, Denies muscle weakness, Denies numbness, Denies radiating pain into limb and Denies tingling Neuro Denies abnormal gait, Denies dizziness, Denies syncope, Denies numbness, Denies tingling and Denies weakness Endo Denies palpitations Physical Exam Vital Signs: Last Vital Signs Pulse 69 12/10/23 15:16 BP 128/78 12/10/23 15:16 BMI result Body Mass Index 26.1 Const General: comfortable and no acute distress Orientation/consciousness: patient oriented x3 HEENT Other: Unremarkable Head: Yes normal to inspection Neck Neck: Yes normal visual inspection Chest Chest palpation & inspection: normal inspection of the chest Resp Auscultation: clear to auscultation bilaterally Cardio Palpation: normal PMI Heart sounds: S1 normal heart sound present, S2 normal heart sound present, no gallops, no murmurs and no rubs GI Palpation (GI): Soft to palpation Back/Spine/Pelvis Other: unremarkable Skin General skin exam: no rashes or lesions noted Neuro General: patient oriented x3 Extrem General: Yes normal to inspection Psych Mental Status: mental status grossly normal Office Procedures EKG Details: EKG with atrial fibrillation, 69/Min; nonspecific ST-T changes. [id number], Complete Assessment & Plan Assessment & Plan (1) Persistent atrial fibrillation: Code(s): I48.19 - Other persistent atrial fibrillation Plan: Per patient preference, did not undergo any cardioversion and maintained on rate control only. Continue diltiazem. Continue anticoagulation. (2) Essential hypertension: Code(s): I10 - Essential (primary) hypertension Plan: Stable. No changes. (3) Cardiomyopathy: Code(s): I42.9 - Cardiomyopathy, unspecified Plan: LVEF has been around 45-50%/50-55%. No clinical congestive heart failure. Probably all related to atrial fibrillation. In the past, perfusion imaging was unremarkable. (4) JOCY (obstructive sleep apnea): Comment: PATIENT IS KNOWN TO HAVE OBSTRUCTIVE SLEEP APNEA, BEING TREATED WITH CPAP USAGE AT NIGHT. HE IS VERY COMPLIANT AND BENEFITS. Code(s): G47.33 - Obstructive sleep apnea (adult) (pediatric) Plan: Continue CPAP. (5) Jaw pain: Code(s): R68.84 - Jaw pain Plan: Recent episode of jaw pain but only 1 episode. Not clear if it is an anginal equivalent or something else. In the past, perfusion imaging unremarkable. However, because of the new symptom we can repeat the same. Orders: Orders CA echo transthoracic complete Today I25.10 - Atherosclerotic heart disease of [place] coronary artery without angina pectoris CA lexiscan stress w reynaldo Today I20.9 - Angina pectoris, unspecified NM cardiolite stress test Today R07.2 - Precordial pain Coding Level of Care Code Est Pt Level 4 (54576) Diagnoses Persistent atrial fibrillation I48.19 Essential hypertension I10 Cardiomyopathy I42.9 JOCY (obstructive sleep apnea) G47.33 Jaw pain R68.84 CPT Codes EKG - CPT: [id number], Complete ([id number])
== END 2023-12-10 15:32 | disposition home or self-care (01) ==
PROVIDERS: PCP Internal Medicine; Visit Provider Internal Medicine
DX: I48.19 Other persistent atrial fibrillation (principal); I10 Essential (primary) hypertension; I42.9 Cardiomyopathy, unspecified; G47.33 Obstructive sleep apnea (adult) (pediatric); R68.84 Jaw pain
CPT/HCPCS: 93010; 99214

== ENCOUNTER → 2023-12-10 15:00 | Outpatient (BNVA) | payer MEDICARE, OTHER, SELFPAY | PROVIDERS: PCP Internal Medicine; Visit Provider Internal Medicine | DX: I48.19 Other persistent atrial fibrillation (principal); I10 Essential (primary) hypertension; I42.9 Cardiomyopathy, unspecified; G47.33 Obstructive sleep apnea (adult) (pediatric); R68.84 Jaw pain; Z79.01 Long term (current) use of anticoagulants; Z79.899 Other long term (current) drug therapy; Z99.89 Dependence on other enabling machines and devices | CPT/HCPCS: 93005; 99212 ==

== ENCOUNTER → 2023-12-18 15:37 | Outpatient (REF) | payer MEDICARE, OTHER, SELFPAY ==
--- NOTE | 2023-12-18 15:40 | CA_ITS ---
Transthoracic Echocardiogram Patient (Last, First, Middle): Keven Aquino J Gender: Male Date of : 1945 Age: 78 Procedure Date: 12/18/2023 Procedure Type: Transthoracic Echocardiogram Location: OP Height: 172.72 cm Weight: 72.58 kg BSA: 1.86 m2 Heart Rate: bpm BP: 116 / 60 mmHg Brewery Technician: Referring MD: Atilio Ball MD Sterile Instrument Technician: Davidson Carey MD Symptoms: I25.10 - Atherosclerotic heart disease of [place] coronary artery without... Study Quality: Adequate ECG Rhythm: Atrial Fibrillation Conclusions: - 1. Hkeb-ks-glxyrevi LV systolic dysfunction with LVEF of 40-45% 2. Moderate biatrial enlargement 3. Normal cardiac valvular Doppler 4. Mildly dilated ascending aorta 5. No gross pericardial effusion Findings Left Ventricle Normal left ventricular cavity size. There is normal left ventricular wall thickness. The left ventricular systolic function is mild to moderately decreased. The visually estimated ejection fraction is between 40-45%. E/E prime ratio is <8, consistent with normal filling pressures. Right Ventricle Normal right ventricular cavity size and systolic function. Atria The left atrium is moderately dilated. There is no evidence of interatrial shunt. The right atrium is moderately dilated. Aortic Valve Normal aortic valve structure and function. There is no aortic valve stenosis. There is no aortic valve regurgitation. Mitral Valve Normal mitral valve structure and function. There is trace mitral valve regurgitation. There is no mitral valve stenosis. Pulmonic Valve The pulmonic valve is likely normal. There is trace pulmonic valve regurgitation. Tricuspid Valve Normal tricuspid valve structure. There is trace tricuspid valve regurgitation. Normal right atrial pressure. Great Vessels The pulmonary artery was not well visualized. There is mild dilatation of the ascending aorta measuring 3.90 cm. Venous The inferior vena cava is normal in size and collapses greater than 50% with inspiration. Pericardium/Pleural There is no evidence of pericardial effusion. Prior Study Comparison Changes noted compared to prior study dated: 02/19/2023. LV systolic function is depressed. Delay in reporting due to technical issues Measurements 2D Linear Measurements IVSd: 1.01 0.6-0.9/0.6-1.0 cm LVIDd: 4.70 3.9-5.3/4.2-5.9 cm LVIDd Index: 2.53 2.4-3.2/2.2-3.1 cm/m2 LVIDs: 2.59 2.0-3.6 cm LVPWd: 1.14 0.7-1.1 cm Ao Root: 3.30 2.1-3.5 cm LA Diam: 4.60 2.7-3.8/3.0-4.0 cm LAIDs Index: 2.47 1.5-2.3 cm/m2 LV Mass: 226.30 67-162/88-224 g LV Mass Index: 121.67 43-95/49-115 g/m2 LVOT Diam: 2.10 3.0+(-)1.3 cm 2D Systolic Function EF 4C: 45.70 >55% EF 2C: 38.00 >55% EF BiP: 40.40 >55% Mitral Valve MV Pk E: 0.78 MV Decel Time: 130.00 E'Lateral: 12.60 E'Medial: 7.62 E/E' Med: 10.30 E/E' Lat: 6.20 PHT: 38.00 MVA PHT: 5.79 Decel [place]: 6.05 Aortic Valve AoV Pk [place]: 1.06 AoV Mn [place]: 0.75 AoV VTI: 0.27 AoV Pk Grad: 4.00 Aov Mn Grad: 3.00 [place] Cont.VTI: 1.98 LVOT LVOT Pk [place]: 0.74 LVOT Mn [place]: 0.49 LVOT VTI: 0.15 LVOT Pk Grad: 2.00 LVOT Mn Grad: 1.00 LVOT Diam: 2.10 LVOT Area: 3.46 Diastolic Function MV Pk E: 0.78 E'Medial: 7.62 E/E' Med: 10.30 E' Laterial: 12.60 E/E' Lat: 6.20 Right Ventricle TAPSE (mm): 20.00 TVS' [place]: 9.00 Tricuspid Valve TR Pk [place]: 2.06 TR Pk Grad: 17.00 Great Vessels Aorta Ao Root-2D: 3.30 2.0-3.7 cm Ao Asc: 3.90 2.1-3.4 cm Pulmonary Valve PV Pk [place]: 0.68 Peak PV Grad: 2.00 Updated in Other Vendor System with Status of Final Davidson Carey MD electronically signed on 12/20/2023 12:57:09 PM with status of Final
== END ==
LOC: HO.CARD 15:37
PROVIDERS: PCP Internal Medicine; Visit Provider Internal Medicine
DX: I25.10 Atherosclerotic heart disease of native coronary artery without angina pectoris (principal)
CPT/HCPCS: 93306

== ENCOUNTER → 2023-12-18 15:40 | Outpatient (BNV) | payer MEDICARE, OTHER, SELFPAY | PROVIDERS: PCP Internal Medicine; Visit Provider Internal Medicine Cardiovascular Disease | DX: I25.10 Atherosclerotic heart disease of native coronary artery without angina pectoris (principal) | CPT/HCPCS: 93306 ==

== ENCOUNTER → 2024-01-14 08:26 | Outpatient (REF) | payer MEDICARE, OTHER, SELFPAY ==
--- NOTE | ~2024-01-14 | NM_ITS ---
Myocardial perfusion study Indication: Precordial pain to evaluate for myocardial ischemia Technique: The patient was brought in for a Lexiscan perfusion study on 01/14/2024. Patient performed low-level exercise and was injected 0.4 mg of Lexiscan intravenously. Within a minute of injection, 30 mCi of sestamibi was given intravenously. Images were obtained using the SPECT gamma camera interlaced with the gating device. Images were obtained in supine position. Resting perfusion study was performed on 01/15/2024. Patient was administered 30 mCi of sestamibi intravenously at rest. Images were then obtained in supine position. Images obtained with and without CT attenuation. Total DLP 77 mGy-cm. Images were processed with the software and compared side to side in short axis, horizontal long axis and vertical long axis views. Findings: The stress perfusion study showed non attenuated images show small area of mildly reduced uptake in the basal inferior wall of the LV myocardium. Remainder of the LV myocardium is normally perfused. Attenuation corrected images show normal uptake of radiotracer in all segments of LV myocardium. The gated study shows normal LV systolic function with calculated LVEF of 51%. LV cavity is normal size. The gated study shows normal systolic wall thickening and contraction of segments. Resting study shows no change in perfusion pattern compared to stress perfusion study. Gating at rest reveals normal systolic wall motion with ejection fraction at greater than 50%. The findings are consistent with no clear reversible defect suggestive of ischemia. Normal myocardial perfusion. NM/NM cardiolite stress test Impression: 1. Myocardial perfusion imaging study shows normal myocardial perfusion 2. Gated LVEF is 51% 3. Transient ischemic dilatation not present EKG is nondiagnostic for ischemia
--- NOTE | 2024-01-14 08:29 | CA_ITS ---
Acquisition Time: 2024-01-14 08:42:57 Total Exercise Time: 00:02:00 Test Indications: afib, cp Medications: see h Protocol: LEXISCAN Max HR: 100 BPM 70% of Pred: 142 BPM Max BP: 144/082 mmHG Max Work Load: 1.0 METS Pharmacological stress test with lexiscan injection while sitting, kicked legs when heart rate got to 60s, without anginal symptoms, without arrhythmias, with normotensive response to injection, with mild downsloping in leads 2, 3, aVF, V5-V6 not meeting criteria for ischemia. Nuclear images pending. Test reviewed with Dr. Ball. Referred By: Atilio Ball Overread By: Evita Betts
== END ==
LOC: HO.CARD 08:26
PROVIDERS: PCP Internal Medicine; Visit Provider Internal Medicine
DX: R07.2 Precordial pain (principal); I20.9 Angina pectoris, unspecified
CPT/HCPCS: 78452; 93017; A9500; J0280; J2785

== ENCOUNTER → 2024-01-14 08:29 | Outpatient (BNV) | payer MEDICARE, OTHER, SELFPAY | PROVIDERS: PCP Internal Medicine; Visit Provider Nurse Practitioner | DX: R07.2 Precordial pain (principal) | CPT/HCPCS: 78452; 93016; 93018 ==

== ENCOUNTER 2024-01-28 09:20 | Outpatient (AMB) | payer MEDICARE, OTHER, SELFPAY ==
--- NOTE | 2024-01-28 09:25 | MHC.OFFVIS ---
Intake Vital Signs 01/28/24 09:26 Height 5 ft 8 in Weight 169 lb 12.095 oz BMI 25.8 BP 120/68 Blood Pressure Location Lt brachial Position Sitting Pulse 69 Intake Visit Reasons: f/up odin/ echo/ HS Intake Note: FOLLOW UP PT FEELS GOOD Allergies dorzolamide Allergy (Severe, Verified 12/10/23 15:16) Unknown valsartan Allergy (Severe, Verified 12/10/23 15:16) unknow lisinopril Allergy (Unknown, Verified 12/10/23 15:16) Unknown sulfamethoxazole [From Bactrim] Allergy (Unknown, Verified 12/10/23 15:16) Unknown trimethoprim [From Bactrim] Allergy (Unknown, Verified 12/10/23 15:16) Unknown Medication List - Last Reconciled 01/28/24 by Joanna Garcia 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 Today he reports he has been feeling well with no concerning symptoms. He has had no episodes of recurrent jaw discomfort. He denies chest discomfort at rest or with activity. No shortness of breath, palpitations lightheadedness, presyncope, syncope, PND, orthopnea or edema. He is compliant with CPAP. He can walk up to 2 miles daily and uses a treadmill at home up to 45 minutes at a time. He hopes to start riding his bike now that the weather has improved. Taking all meds as directed. [facility] Medical History HTN (hypertension) Hx of gout Hx of renal calculi Seasonal allergies Hx of bladder cancer History of COVID-19 Glaucoma Pituitary tumor Sleep apnea Surgical History Hx of cystoscopy Hx of right inguinal hernia repair Hx of colonoscopy Family History Father No problems noted. Mother No problems noted. Brother Atrial fibrillation Social History Household Members: Spouse Are you a primary patient care provider to a significant other at home: No Do you presently have visiting nurse or other home services: No Alcohol intake: current Alcohol intake frequency: does not drink Patient Tobacco Use Status: Former Tobacco user Quit Date: Review of Systems Const All systems reviewed & are unremarkable except as noted in HPI and below Denies weakness ENT Denies dizziness Card Denies chest pain, Denies chest pain with activity, Denies syncope, Denies rapid heart rate, Denies pedal edema, Denies edema, Denies leg edema, Denies lightheadedness, Denies palpitations, Denies dyspnea, Denies dyspnea on exertion and Denies orthopnea Resp Denies cough, Denies dyspnea and Denies dyspnea on exertion GI Denies hematochezia and Denies change in stool character Musc Details: hands always cold Denies abnormal gait, Denies muscle cramps, Denies muscle weakness, Denies numbness, Denies radiating pain into limb and Denies tingling Neuro Denies abnormal gait, Denies dizziness, Denies syncope, Denies numbness, Denies tingling and Denies weakness Endo Denies palpitations Physical Exam Vital Signs: Last Vital Signs Pulse 69 01/28/24 09:26 BP 120/68 01/28/24 09:26 BMI result Body Mass Index 25.8 Const General: cooperative, healthy appearing, comfortable and no acute distress Orientation/consciousness: patient oriented x3 Neck Neck: Yes normal visual inspection and Yes no JVD Resp Effort & Inspection: normal respiratory effort Auscultation: clear to auscultation bilaterally, no crackles, no rales, no rhonchi and no wheezes Cardio Jugular venous distension: no JVD Rate: regular rate Rhythm: abnormal rhythm Heart sounds: S1 normal heart sound present, S2 normal heart sound present, no murmurs and no rubs Neuro General: patient oriented x3 Extrem Other: hands cold to touch Psych Appearance: grossly normal Mental Status: mental status grossly normal Speech and movement: Normal speech and movement present Assessment & Plan Assessment & Plan (1) Persistent atrial fibrillation: Code(s): I48.19 - Other persistent atrial fibrillation Plan: History of persistent atrial fibrillation. Being treated for heart rate control. Is on diltiazem. Previously on metoprolol which aggravated his Raynaud's. Last Holter monitor done 11/07/2021 showed AFib with average heart rate 81. He denies any heart palpitations. Pulse is irregularly irregular on exam today. Recent echo shows EF 40-45%, moderate biatrial enlargement. Has had mild cardiomyopathy in the past. EF currently down further than prior. Will check a Holter monitor to reassess heart rate control. Continue on Eliquis for anticoagulation. No bleeding issues reported. Labs done 11/26/2023 showing creatinine in 1.05. No med changes made. (2) Cardiomyopathy: Code(s): I42.9 - Cardiomyopathy, unspecified Plan: Known history of mild cardiomyopathy with prior EF 45-50%. Echo done last year showed EF 50-55%. Recent echo 12/18/2023 showed EF 40-45%, mild biatrial enlargement. He did have nuclear stress test 01/15/2024 which showed normal myocardial, EF 51%. He has no anginal or heart failure symptoms. On exam he does not appear fluid overloaded. He has currently not on meds for neurohormonal modulation. 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 Ball regarding med changes. (3) Jaw pain: Code(s): R68.84 - Jaw pain Plan: One episode a few months back. No recurrent episodes. Nuclear stress test normal as above. (4) JOCY (obstructive sleep apnea): Comment: PATIENT IS KNOWN TO HAVE OBSTRUCTIVE SLEEP APNEA, BEING TREATED WITH CPAP USAGE AT NIGHT. HE IS VERY COMPLIANT AND BENEFITS. Code(s): G47.33 - Obstructive sleep apnea (adult) (pediatric) Plan: Compliant with CPAP Plan Time spent on chart review, documentation, interview and assessment Orders: Orders ECG 3 day holter monitor Today I42.9 - Cardiomyopathy, unspecified, I48.19 - Other persistent atrial fibrillation Coding Level of Care Code Est Pt Level 4 (63554) Diagnoses Persistent atrial fibrillation I48.19 Cardiomyopathy I42.9 Jaw pain R68.84 JOCY (obstructive sleep apnea) G47.33 Time Spent (min) 28
[2024-01-28 09:26] VITALS: BP 120/68; PULSE 69; BMI 25.8
== END 2024-01-28 10:15 | disposition home or self-care (01) ==
PROVIDERS: PCP Internal Medicine; Visit Provider Nurse Practitioner Family
DX: I48.19 Other persistent atrial fibrillation (principal); I42.9 Cardiomyopathy, unspecified; R68.84 Jaw pain; G47.33 Obstructive sleep apnea (adult) (pediatric)
CPT/HCPCS: 99214

== ENCOUNTER → 2024-01-28 09:20 | Outpatient (BNVA) | payer MEDICARE, OTHER, SELFPAY | PROVIDERS: PCP Internal Medicine; Visit Provider Nurse Practitioner Family | DX: I48.19 Other persistent atrial fibrillation (principal); I42.9 Cardiomyopathy, unspecified; R68.84 Jaw pain | CPT/HCPCS: 99212 ==

== ENCOUNTER → 2024-02-14 11:14 | Outpatient (REF) | payer MEDICARE, OTHER, SELFPAY ==
--- NOTE | 2024-02-14 11:17 | HM_ITS ---
* Total monitoring time 3 days. * Underlying rhythm is atrial fibrillation with an average ventricular rate of 72/Min. * Pauses noted, but not of significance. Longest, 2.6 seconds at 07:02am. * Rare ventricular ectopy. * No patient markers or diary events. MTDD
== END ==
LOC: HO.CARD 11:14
PROVIDERS: PCP Internal Medicine; Visit Provider Nurse Practitioner Family
DX: I48.19 Other persistent atrial fibrillation (principal); I42.9 Cardiomyopathy, unspecified
CPT/HCPCS: 93242

== ENCOUNTER → 2024-02-14 11:17 | Outpatient (BNV) | payer MEDICARE, OTHER, SELFPAY | PROVIDERS: PCP Internal Medicine; Visit Provider Internal Medicine | DX: I48.91 Unspecified atrial fibrillation (principal) | CPT/HCPCS: 93244 ==

== ENCOUNTER 2024-06-02 10:06 | Outpatient (AMB) | payer MEDICARE, OTHER, SELFPAY ==
[2024-06-02 10:10] VITALS: BP 130/80; PULSE 80; O2SAT 97
--- NOTE | 2024-06-02 10:10 | MHC.OFFVIS ---
Vital Signs 06/02/24 10:10 Weight 165 lb 5.547 oz BP 130/80 Blood Pressure Location Lt brachial Position Sitting Pulse 80 Pulse Source Pulse Oximeter Pulse Oximetry (%) 97 Oxygen Delivery Method Room Air Intake Visit Reasons: Obstructive sleep apnea Allergies dorzolamide Allergy (Severe, Verified 06/02/24 10:23) Unknown valsartan Allergy (Severe, Verified 06/02/24 10:23) unknow lisinopril Allergy (Unknown, Verified 06/02/24 10:23) Unknown sulfamethoxazole [From Bactrim] Allergy (Unknown, Verified 06/02/24 10:23) Unknown trimethoprim [From Bactrim] Allergy (Unknown, Verified 06/02/24 10:23) Unknown Medication List - Last Reconciled 06/02/24 by Dot Webster MD apixaban (Eliquis) 5 mg PO BID 90 days cabergoline 0.5 mg PO 2XW diltiazem HCl ER 120 mg PO BID 90 days latanoprost 0.005% 1 drp ophthalmic (eye) QPM timolol 0.5% 1 drp ophthalmic (eye) DAILY vit C,N-Ze-oqgbg-lutein-zeaxan 250-90-40-1 mg (PreserVision AREDS-2) 1 tab PO BID Do you need a note to return to daycare/school/sports/work: No HPI HPI Obstructive sleep apnea: Details: THIS 79 YEARS OLD GENTLEMAN IS HERE FOR 6 MONTHS FOLLOW-UP FOR HIS SLEEP APNEA. HE USES CPAP WITH FULLFACE MASK EVERY NIGHT. SLEEPS FAIRLY GOOD EXCEPT FOR WAKING UP A FEW TIMES DURING THE NIGHT DUE TO SOME AIR LEAK. BUT HE ENDS UP USING THE MASK MORE THAN 6 HOURS EVERY NIGHT. DENIES ANY DAYTIME SLEEPINESS. HE GETS CPAP SUPPLIES ON TIME. [facility] Medical History HTN (hypertension) Hx of gout Hx of renal calculi Seasonal allergies Hx of bladder cancer History of COVID-19 Glaucoma Pituitary tumor Sleep apnea Surgical History Hx of cystoscopy Hx of right inguinal hernia repair Hx of colonoscopy Family History Father No problems noted. Mother No problems noted. Brother Atrial fibrillation Social History Household Members: Spouse Are you a primary hospice spiritual care coordinator to a significant other at home: No Do you presently have visiting nurse or other home services: No Alcohol intake: current Alcohol intake frequency: does not drink Patient Tobacco Use Status: Former Tobacco user Review of Systems Const All systems reviewed & are unremarkable except as noted in HPI and below Eyes Reports no additional complaints ENT Reports nasal congestion (Off and on due to seasonal allergies) Card Denies chest pain, Reports irregular heart rhythm and Denies leg edema Resp Reports no additional complaints, Denies cough and Denies wheezing GI Reports no additional complaints Reports no additional complaints Musc Reports no additional complaints Skin/Breast Reports system reviewed and no additional complaints, except as documented Neuro Reports no additional complaints Psych Reports no additional complaints Aller/Immun Denies wheezing Physical Exam Vital Signs: Last Vital Signs Pulse 80 06/02/24 10:10 BP 130/80 06/02/24 10:10 Pulse Ox 97 06/02/24 10:10 Oxygen Delivery Method Room Air 06/02/24 10:10 Const General: comfortable, no acute distress, alert and awake Orientation/consciousness: patient oriented x3 HEENT Head: Yes normal to inspection General nose exam: No nasal polyps present and No nasal discharge present Face and sinus: Yes sinuses nontender Mouth: oropharynx normal Throat: Yes posterior oropharynx normal Eyes General: appearance normal, both eyes and all related structures Neck Neck: Yes normal visual inspection, Yes no lymphadenopathy, Yes trachea midline and Yes no JVD Thyroid: Thyroid normal Chest Chest palpation & inspection: normal inspection of the chest, normal palpation of entire chest wall and no tenderness Resp Other: Percussion note resonant, breath sounds are equal on both sides, no wheezes or rhonchi. Cardio Palpation: normal PMI Rate: regular rate Rhythm: abnormal rhythm (Atrial fib) Heart sounds: no gallops and no murmurs GI Palpation (GI): Soft to palpation, nontender, No hepatosplenomegaly present and no masses Auscultation: normal bowel sounds Back/Spine/Pelvis Thoracic/Lumbar Spine: thoracic and lumbar spine normal to inspection Skin General skin exam: no rashes or lesions noted Neuro General: patient oriented x3 and no focal motor deficits Cranial nerves: Yes CN's II-XII intact bilaterally Extrem General: Yes normal to inspection, Yes no clubbing, cyanosis or edema and Yes no calf tenderness Psych Speech and movement: Normal speech and movement present Results Reviewed Results Reviewed: COMPLIANCE REPORT FOR THE LAST 30 NIGHTS IS REVIEWED HE MISSED USING ONLY 1 NIGHT. AVERAGE USE PER NIGHT 6 HOURS 17 MINUTES. PRESSURE USED MOSTLY 11 0.8 CM. THERE IS NO SIGNIFICANT AIR LEAK. RESIDUAL AHI 4.8 Assessment & Plan Assessment & Plan (1) JOCY (obstructive sleep apnea): Comment: PATIENT IS KNOWN TO HAVE OBSTRUCTIVE SLEEP APNEA, BEING TREATED WITH CPAP AT NIGHT , WITH FULLFACE MASK AND PRESSURE SETTING 6-12 CM HE IS VERY COMPLIANT AND BENEFITING . Code(s): G47.33 - Obstructive sleep apnea (adult) (pediatric) Category: Medical Plan: COMMENDED FOR GOOD COMPLIANCE AND ADVISED TO KEEP ON USING THE CPAP REGULARLY EVERY NIGHT. Coding Level of Care Code Est Pt Level 3 (38233) Diagnoses JOCY (obstructive sleep apnea) G47.33
== END 2024-06-02 10:48 | disposition home or self-care (01) ==
PROVIDERS: PCP Internal Medicine; Visit Provider Internal Medicine
DX: G47.33 Obstructive sleep apnea (adult) (pediatric) (principal)
CPT/HCPCS: 99213

== ENCOUNTER → 2024-06-02 10:06 | Outpatient (BNVA) | payer MEDICARE, OTHER, SELFPAY | PROVIDERS: PCP Internal Medicine; Visit Provider Internal Medicine | DX: G47.33 Obstructive sleep apnea (adult) (pediatric) (principal) | CPT/HCPCS: 99212 ==

== ENCOUNTER 2024-07-16 12:45 | Outpatient (AMB) | payer MEDICARE, OTHER, SELFPAY ==
--- NOTE | 2024-07-16 12:52 | MHC.OFFVIS ---
Vital Signs 07/16/24 12:53 Height 5 ft 8 in Weight 165 lb 5.547 oz BMI 25.1 BP 118/62 Blood Pressure Location Lt brachial Position Sitting Pulse 70 Pulse Source Pulse Oximeter Intake Visit Reasons: 1 year follow up Allergies dorzolamide Allergy (Severe, Verified 06/02/24 10:23) Unknown valsartan Allergy (Severe, Verified 06/02/24 10:23) unknow lisinopril Allergy (Unknown, Verified 06/02/24 10:23) Unknown sulfamethoxazole [From Bactrim] Allergy (Unknown, Verified 06/02/24 10:23) Unknown trimethoprim [From Bactrim] Allergy (Unknown, Verified 06/02/24 10:23) Unknown Medication List - Last Reconciled 07/16/24 by Atilio Ball MD apixaban (Eliquis) 5 mg PO BID 90 days cabergoline 0.5 mg PO 2XW diltiazem HCl ER 120 mg PO BID 90 days latanoprost 0.005% 1 drp ophthalmic (eye) QPM timolol 0.5% 1 drp ophthalmic (eye) DAILY vit C,J-Pq-mbjki-lutein-zeaxan 250-90-40-1 mg (PreserVision AREDS-2) 1 tab PO BID HPI Comments Details: Keven returns for follow-up regarding atrial fibrillation. To recall, in the past, he came for colonoscopy and found to have atrial fibrillation which was a new finding. In the past, cardioversion was discussed but he was not inclined and hence he is mainly on rate control only. It has not really bothered him. Otherwise, for the most part he is doing fine. No specific concerns. In the past, has complained of jaw pain but no recurrence in the last year. Stress perfusion imaging was unremarkable. [facility] Medical History HTN (hypertension) Hx of gout Hx of renal calculi Seasonal allergies Hx of bladder cancer History of COVID-19 Glaucoma Pituitary tumor Sleep apnea Surgical History Hx of cystoscopy Hx of right inguinal hernia repair Hx of colonoscopy Family History Father No problems noted. Mother No problems noted. Brother Atrial fibrillation Social History Household Members: Spouse Are you a primary doggy daycare activities director to a significant other at home: No Do you presently have visiting nurse or other home services: No Alcohol intake: current Alcohol intake frequency: does not drink Patient Tobacco Use Status: Former Tobacco user Review of Systems Const Denies weakness ENT Denies dizziness Card Denies chest pain, Denies chest pain with activity, Denies syncope, Denies rapid heart rate, Denies pedal edema, Denies edema, Denies leg edema, Denies lightheadedness, Denies palpitations, Denies dyspnea, Denies dyspnea on exertion and Denies orthopnea Resp Denies cough, Denies dyspnea and Denies dyspnea on exertion GI Denies hematochezia and Denies change in stool character Musc Denies abnormal gait, Denies muscle cramps, Denies muscle weakness, Denies numbness, Denies radiating pain into limb and Denies tingling Neuro Denies abnormal gait, Denies dizziness, Denies syncope, Denies numbness, Denies tingling and Denies weakness Endo Denies palpitations Physical Exam Vital Signs: Last Vital Signs Pulse 70 07/16/24 12:53 BP 118/62 07/16/24 12:53 BMI result Body Mass Index 25.1 Const General: comfortable and no acute distress Orientation/consciousness: patient oriented x3 HEENT Other: Unremarkable Head: Yes normal to inspection Neck Neck: Yes normal visual inspection Chest Chest palpation & inspection: normal inspection of the chest Resp Auscultation: clear to auscultation bilaterally Cardio Palpation: normal PMI Heart sounds: S1 normal heart sound present, S2 normal heart sound present, no gallops, no murmurs and no rubs GI Palpation (GI): Soft to palpation Back/Spine/Pelvis Other: unremarkable Skin General skin exam: no rashes or lesions noted Neuro General: patient oriented x3 Extrem General: Yes normal to inspection Psych Mental Status: mental status grossly normal Assessment & Plan Assessment & Plan (1) Persistent atrial fibrillation: Code(s): I48.19 - Other persistent atrial fibrillation Category: Medical Plan: Per patient preference, did not undergo any cardioversion and maintained on rate control only. Continue diltiazem. Continue anticoagulation. (2) Essential hypertension: Code(s): I10 - Essential (primary) hypertension Category: Medical Plan: Stable. No changes. (3) Cardiomyopathy: Code(s): I42.9 - Cardiomyopathy, unspecified Category: Medical Plan: LVEF at different times has been around 40-45%, 45-50%, 50-55%. Variable. However, clinically no heart failure symptoms or signs. Could be related to atrial fibrillation. Normal myocardial perfusion imaging study. (4) Raynaud's phenomenon: Code(s): I73.00 - Raynaud's syndrome without gangrene Category: Medical Qualifiers: Raynaud?s-associated gangrene presence: without gangrene Qualified Code(s): I73.00 - Raynaud's syndrome without gangrene Plan: Off beta-blockers. No recent issues per patient. (5) JOCY (obstructive sleep apnea): Comment: PATIENT IS KNOWN TO HAVE OBSTRUCTIVE SLEEP APNEA, BEING TREATED WITH CPAP AT NIGHT , WITH FULLFACE MASK AND PRESSURE SETTING 6-12 CM HE IS VERY COMPLIANT AND BENEFITING . Code(s): G47.33 - Obstructive sleep apnea (adult) (pediatric) Category: Medical Plan: Continue CPAP. Orders: Orders CA echo transthoracic complete 1 Year I42.9 - Cardiomyopathy, unspecified Coding Level of Care Code Est Pt Level 4 (20115) Diagnoses Persistent atrial fibrillation I48.19 Essential hypertension I10 Cardiomyopathy I42.9 Raynaud's phenomenon without gangrene I73.00 Raynaud?s-associated gangrene presence: without gangrene JOCY (obstructive sleep apnea) G47.33
[2024-07-16 12:53] VITALS: BP 118/62; PULSE 70; BMI 25.1
== END 2024-07-16 13:05 | disposition home or self-care (01) ==
PROVIDERS: PCP Internal Medicine; Visit Provider Internal Medicine
DX: I48.19 Other persistent atrial fibrillation (principal); I10 Essential (primary) hypertension; I42.9 Cardiomyopathy, unspecified; I73.00 Raynaud's syndrome without gangrene; G47.33 Obstructive sleep apnea (adult) (pediatric)
CPT/HCPCS: 99214

== ENCOUNTER → 2024-07-16 12:45 | Outpatient (BNVA) | payer MEDICARE, OTHER, SELFPAY | PROVIDERS: PCP Internal Medicine; Visit Provider Internal Medicine | DX: I48.19 Other persistent atrial fibrillation (principal); I42.9 Cardiomyopathy, unspecified; I10 Essential (primary) hypertension; I73.00 Raynaud's syndrome without gangrene; G47.33 Obstructive sleep apnea (adult) (pediatric) | CPT/HCPCS: 99212 ==

== ENCOUNTER 2024-10-29 09:48 | Outpatient (AMB) | payer MEDICARE, OTHER, SELFPAY ==
--- NOTE | 2024-10-29 09:57 | A.OFFVIS_ITS ---
Vital Signs 10/29/24 10:02 Height 5 ft 8 in Weight 170 lb 13.732 oz BMI 26.0 BP 116/64 Blood Pressure Location Rt brachial Position Sitting Pulse 90 Pulse Source Pulse Oximeter Pulse Oximetry (%) 96 Oxygen Delivery Method Room Air Intake Visit Reasons: Raynaud's Intake Note: Patient presents for Raynauds. Allergies dorzolamide Allergy (Severe, Verified 10/29/24 10:00) Unknown valsartan Allergy (Severe, Verified 10/29/24 10:00) unknow lisinopril Allergy (Unknown, Verified 10/29/24 10:00) Unknown sulfamethoxazole [From Bactrim] Allergy (Unknown, Verified 10/29/24 10:00) Unknown trimethoprim [From Bactrim] Allergy (Unknown, Verified 10/29/24 10:00) Unknown Medication List - Last Reconciled 10/29/24 by Enrique Ramires MD apixaban (Eliquis) 5 mg PO BID 90 days cabergoline 0.5 mg PO 2XW diltiazem HCl ER 120 mg PO BID 90 days latanoprost 0.005% 1 drp ophthalmic (eye) QPM timolol 0.5% 1 drp ophthalmic (eye) DAILY vit C,K-Ci-jsezh-lutein-zeaxan 250-90-40-1 mg (PreserVision AREDS-2) 1 tab PO BID HPI Comments Details: 79-year-old male with Raynaud's returns for follow-up. States that he feels well overall. He states that he continues to have intermittent Raynaud's episode, generally worse in the colder winter months, symptoms are associated with numbness, he denies having any digital ulcers or prolonged painful episodes Initial history: This is a 78-year-old male with a past medical history of AFib on Eliquis who presents for evaluation of Raynaud's phenomenon. The condition started back last winter when he noticed that the tips of his fingers and toes would change color to white in the cold. This would be associated with some tingling and numbness. This would happen multiple times of the day. Sometimes if he reaches into the freezer he would have an episode. He would put his hands around a warm coffee cup to get it better. He denied the color ever changing to blue or purple. He cannot recall an instance when he could not reverse the color back to normal. He was wearing gloves more often out in the cold. He was evaluated by his sales representative jewelry 03/10 and at that time metoprolol was switched to Cardizem. Patient stated that since that change was made he has not had any recurrent episodes. He is unaware of any family history of autoimmune rheumatic disease. Denies any history of DVT/PE PFSH Medical History HTN (hypertension) Hx of gout Hx of renal calculi Seasonal allergies Hx of bladder cancer History of COVID-19 Glaucoma Pituitary tumor Sleep apnea Surgical History Hx of cystoscopy Hx of right inguinal hernia repair Hx of colonoscopy Family History Father No problems noted. Mother No problems noted. Brother Atrial fibrillation Social History Household Members: Spouse Are you a primary patient care representative to a significant other at home: No Do you presently have visiting nurse or other home services: No Alcohol intake: current Alcohol intake frequency: does not drink Patient Tobacco Use Status: Former Tobacco user Review of Systems Musc Reports arthralgias Physical Exam Vital Signs: Last Vital Signs Pulse 90 10/29/24 10:02 BP 116/64 10/29/24 10:02 Pulse Ox 96 10/29/24 10:02 Oxygen Delivery Method Room Air 10/29/24 10:02 BMI result Body Mass Index 26.0 Const General: cooperative, healthy appearing and comfortable Nutritional Appearance: average body habitus Orientation/consciousness: patient oriented x3 Limitations: no limitations HEENT Head: Yes normocephalic and Yes atraumatic Mouth: moist mucous membranes Resp Effort & Inspection: normal respiratory effort and able to speak in complete sentences Skin Other: Seborrheic dermatitis on face Neuro General: patient oriented x3 Extrem Other: Osteoarthritic changes of both hands with no active synovitis Cool fingertips Normal nailfold capillaroscopy Assessment & Plan Assessment & Plan (1) Raynaud's phenomenon: Code(s): I73.00 - Raynaud's syndrome without gangrene Category: Medical Qualifiers: Raynaud?s-associated gangrene presence: without gangrene Qualified Code(s): I73.00 - Raynaud's syndrome without gangrene Plan: This is a 78-year-old male with Raynaud's who presents for follow-up. His Raynaud symptoms is well controlled with conservative measures. He is On Cardizem prescribed by cardiology. We again discussed Raynaud's. Discussed conservative measures for Raynaud's including keeping core and extremity temperature warm. Wearing gloves and glove warmers if needed. I have examined patient 3 times over 3 years and I do not see any signs of an autoimmune rheumatic disease. At this time patient can follow-up as needed Plan I spent 15 minutes reviewing patient's chart, evaluating patient, counseling patient and documenting in the chart Coding Level of Care Code Est Pt Level 3 (06093) Diagnoses Raynaud's phenomenon without gangrene I73.00 Raynaud?s-associated gangrene presence: without gangrene
[2024-10-29 10:02] VITALS: BP 116/64; PULSE 90; O2SAT 96; BMI 26.0
== END 2024-10-29 10:18 | disposition home or self-care (01) ==
PROVIDERS: PCP Internal Medicine; Visit Provider Student in an Organized Health Care Education/Training Program
DX: I73.00 Raynaud's syndrome without gangrene (principal)
CPT/HCPCS: 99213

== ENCOUNTER → 2024-10-29 09:48 | Outpatient (BNVA) | payer MEDICARE, OTHER, SELFPAY | PROVIDERS: PCP Internal Medicine; Visit Provider Student in an Organized Health Care Education/Training Program | DX: I73.00 Raynaud's syndrome without gangrene (principal) | CPT/HCPCS: 99212 ==

== ENCOUNTER 2024-11-23 10:47 | Outpatient (AMB) | payer MEDICARE, OTHER, SELFPAY ==
[2024-11-23 11:03] VITALS: BP 120/60; PULSE 70; O2SAT 97; BMI 25.6
--- NOTE | 2024-11-23 11:03 | A.OFFVIS_ITS ---
Vital Signs 11/23/24 11:03 Height 5 ft 8 in Weight 168 lb 10.458 oz BMI 25.6 BP 120/60 Blood Pressure Location Lt brachial Position Sitting Pulse 70 Pulse Source Pulse Oximeter Pulse Oximetry (%) 97 Oxygen Delivery Method Room Air Intake Visit Reasons: Obstructive sleep apnea Intake Note: pt is here for JOCY and is feeling good, but he did swith to F40 Mind Reader Required: No Allergies dorzolamide Allergy (Severe, Verified 11/23/24 11:19) Unknown valsartan Allergy (Severe, Verified 11/23/24 11:19) unknow lisinopril Allergy (Unknown, Verified 11/23/24 11:19) Unknown sulfamethoxazole [From Bactrim] Allergy (Unknown, Verified 11/23/24 11:19) Unknown trimethoprim [From Bactrim] Allergy (Unknown, Verified 11/23/24 11:19) Unknown Medication List - Last Reconciled 11/23/24 by Dot Webster MD apixaban (Eliquis) 5 mg PO BID 90 days cabergoline 0.5 mg PO 2XW diltiazem HCl ER 120 mg PO BID 90 days latanoprost 0.005% 1 drp ophthalmic (eye) QPM timolol 0.5% 1 drp ophthalmic (eye) DAILY vit C,G-Ey-ptwqn-lutein-zeaxan 250-90-40-1 mg (PreserVision AREDS-2) 1 tab PO BID Do you need a note to return to daycare/school/sports/work: No HPI HPI Obstructive sleep apnea: Details: VALENTE IS 79 YEARS OLD VERY PLEASANT GENTLEMAN A CASE OF OBSTRUCTIVE SLEEP APNEA, AND IS HERE FOR 6 MONTHS FOLLOW-UP. HE USES HIS CPAP VERY REGULARLY WITH A FULLFACE MASK. RECENTLY HE HAS GOTTEN F-40 FULLFACE MASK, WHICH WORKS BETTER THAN HIS PREVIOUS MASK. HE USES AT LEAST FOR 6 HOURS EVERY NIGHT. DENIES ANY DAYTIME SLEEPINESS. FOR[facility], [facility] Medical History HTN (hypertension) Hx of gout Hx of renal calculi Seasonal allergies Hx of bladder cancer History of COVID-19 Glaucoma Pituitary tumor Sleep apnea Surgical History Hx of cystoscopy Hx of right inguinal hernia repair Hx of colonoscopy Family History Father No problems noted. Mother No problems noted. Brother Atrial fibrillation Social History Household Members: Spouse Are you a primary careers counsellor to a significant other at home: No Do you presently have visiting nurse or other home services: No Alcohol intake: current Alcohol intake frequency: does not drink Patient Tobacco Use Status: Former Tobacco user Review of Systems Const All systems reviewed & are unremarkable except as noted in HPI and below Eyes Reports no additional complaints ENT Reports nasal congestion (Off and on due to seasonal allergies) Card Denies chest pain, Reports irregular heart rhythm and Denies leg edema Resp Reports no additional complaints, Denies cough and Denies wheezing GI Reports no additional complaints Reports no additional complaints Musc Reports no additional complaints Skin/Breast Reports system reviewed and no additional complaints, except as documented Neuro Reports no additional complaints Psych Reports no additional complaints Aller/Immun Denies wheezing Physical Exam Vital Signs: Last Vital Signs Pulse 70 11/23/24 11:03 BP 120/60 11/23/24 11:03 Pulse Ox 97 11/23/24 11:03 Oxygen Delivery Method Room Air 11/23/24 11:03 BMI result Body Mass Index 25.6 Const General: comfortable, no acute distress, alert and awake Orientation/consciousness: patient oriented x3 HEENT Head: Yes normal to inspection General nose exam: No nasal polyps present and No nasal discharge present Face and sinus: Yes sinuses nontender Mouth: oropharynx normal Throat: Yes posterior oropharynx normal Eyes General: appearance normal, both eyes and all related structures Neck Neck: Yes normal visual inspection, Yes no lymphadenopathy, Yes trachea midline and Yes no JVD Thyroid: Thyroid normal Chest Chest palpation & inspection: normal inspection of the chest, normal palpation of entire chest wall and no tenderness Resp Other: Percussion note resonant, breath sounds are equal on both sides, no wheezes or rhonchi. Cardio Palpation: normal PMI Rate: regular rate Rhythm: abnormal rhythm (Atrial fib) Heart sounds: no gallops and no murmurs GI Palpation (GI): Soft to palpation, nontender, No hepatosplenomegaly present and no masses Auscultation: normal bowel sounds Back/Spine/Pelvis Thoracic/Lumbar Spine: thoracic and lumbar spine normal to inspection Skin General skin exam: no rashes or lesions noted Neuro General: patient oriented x3 and no focal motor deficits Cranial nerves: Yes CN's II-XII intact bilaterally Extrem General: Yes normal to inspection, Yes no clubbing, cyanosis or edema and Yes no calf tenderness Psych Speech and movement: Normal speech and movement present Results Reviewed Results Reviewed: THE COMPLIANCE REPORT IS FROM THE MONTH OF AUGUST 2024. IT SHOWED THAT HE WAS USING IT 100% OF THE NIGHT, WITH AN AVERAGE USAGE OF 6 HOURS 3 MINUTES. THERE WAS SOME AIR LEAK AND RESIDUAL AHI 4.8. HIS THE TO DATE COMPLIANCE REPORT IS PENDING, BECAUSE HE HAS TO SEND THE CHIP TO THE DME PROVIDER. Assessment & Plan Assessment & Plan (1) JOCY (obstructive sleep apnea): Comment: PATIENT IS KNOWN TO HAVE OBSTRUCTIVE SLEEP APNEA, BEING TREATED WITH CPAP AT NIGHT , WITH FULLFACE MASK AND PRESSURE SETTING 6-12 CM HE IS VERY COMPLIANT AND BENEFITING . Code(s): G47.33 - Obstructive sleep apnea (adult) (pediatric) Category: Medical Plan: ADVISED TO CONTINUE USING THE CPAP REGULARLY. WITH RECHECK IN 6 MONTHS. Coding Level of Care Code Est Pt Level 3 (56450) Diagnoses JOCY (obstructive sleep apnea) G47.33
== END 2024-11-23 11:25 | disposition home or self-care (01) ==
PROVIDERS: PCP Internal Medicine; Visit Provider Internal Medicine
DX: G47.33 Obstructive sleep apnea (adult) (pediatric) (principal)
CPT/HCPCS: 99213

== ENCOUNTER → 2024-11-23 10:47 | Outpatient (BNVA) | payer MEDICARE, OTHER, SELFPAY | PROVIDERS: PCP Internal Medicine; Visit Provider Internal Medicine | DX: G47.33 Obstructive sleep apnea (adult) (pediatric) (principal) | CPT/HCPCS: 99212 ==

== ENCOUNTER 2024-11-27 11:52 | Outpatient (REF) | payer MEDICARE, OTHER, SELFPAY ==
[2024-11-27 11:55] LABS: MANUAL DIFF FLAG NO
[2024-11-27 12:05] LABS: Appearance Urine Clear; Color Urine Yellow; Glucose Urine UA Negative (Negative); Leukocyte Esterase Urine Negative (Negative); Nitrite Urine Negative (Negative); Specific Gravity - Urine <= 1.005 (1.005-1.025); UMIC TRIGGER UACC YES; Urine Blood Trace (Negative); Urine Ketones Negative (Negative); Urine Protein Negative (Neg-Trace)
[2024-11-27 12:07] LABS: Basophils Percent Auto 0.5 % (0-2); Eosinophils Absolute Auto 0.3 X10*3/uL (0.0-0.4); Eosinophils Percent Auto 5.2 % (0-4); Hematocrit 46.2 % (42.0-52.0); Hemoglobin 15.8 g/dl (14.0-18.0); Imm Gran Abs Auto 0.05 X10*3/uL (0.00-0.03); Imm Gran Pct Auto 0.9 % (0.0-0.4); Lymphocytes Absolute Auto 1.1 X10*3/uL (1.2-4.9); Mean Corpuscular HGB Conc 34.2 g/dl (31.0-36.0); Mean Corpuscular Hemoglobin 31.8 pg (27.0-33.0); Mean Platelet Volume 10.6 fL (9.4-12.4); Monocytes Absolute Auto 0.5 X10*3/uL (0.1-1.2); Monocytes Percent Auto 8.8 % (2-11); Neutrophils Absolute Auto 3.7 x10*3/uL (2.0-8.3); Neutrophils Percent Auto 65.6 % (45-73); Platelet Count 128 X10*3/uL (160-400); Red Blood Count 4.97 X10*6/uL (4.60-5.80); Red Cell Distribution Width 13.2 % (11.0-16.0); White Blood Count 5.6 X10*3/uL (4.8-10.8)
[2024-11-27 12:08] LABS: Bacteria Urine None Seen (None Seen); Hyaline Casts Urine 0-2 /LPF (0-2); RBC Urine 0-2 /HPF (0-2); Squamous Epithelial Cell Urine 0-2 /HPF (0-2); WBC Urine 0-5 /HPF (0-5)
[2024-11-27 12:18] LABS: Estimated Average Glucose 100 mg/dL; Hemoglobin A1c % 5.1 % (<6.0); Total Hemoglobin (HGBA1C) 4054.0525 umol/L
[2024-11-27 12:28] LABS: Microalbum/Creatinine Ratio Ur 67.3 ug/mg cr (<30)
[2024-11-27 12:37] LABS: PSA,Total (Free>4and<10) 0.27 ng/mL (0.00-4.00)
[2024-11-27 12:50] LABS: Alanine Aminotransferase 28 U/L (0-40); Albumin Level 4.2 g/dL (3.5-5.0); Alkaline Phosphatase 93 U/L (39-117); Anion Gap 9 (12-20); Aspartate Amino Transferase 25 U/L (5-37); Bilirubin Total 0.8 mg/dL (0.0-1.0); Blood Urea Nitrogen 21 mg/dL (9-16); Carbon Dioxide 30 mmol/L (22-29); Chloride 107 mmol/L (96-108); Cholesterol 157 mg/dL (<200); Estimated Glomerular Filt Rate > 60; Glucose Fasting 99 mg/dL (60-99); HDL Cholesterol 51 mg/dL (>40); LDL Cholesterol Calculated 94 mg/dL (<100); Potassium 3.8 mmol/L (3.3-5.1); Sodium 142 mmol/L (135-145); Total Protein 6.7 g/dL (6.5-8.0); Triglycerides 61 mg/dL (<150)
== END 2024-11-27 11:53 | disposition home or self-care (01) ==
LOC: HO.LNP 11:52
PROVIDERS: Visit Provider Internal Medicine
DX: I10 Essential (primary) hypertension (principal); E78.6 Lipoprotein deficiency; R73.09 Other abnormal glucose; D70.9 Neutropenia, unspecified; Z12.5 Encounter for screening for malignant neoplasm of prostate
CPT/HCPCS: 80053; 80061; 81001; 82043; 82570; 83036; 84153; 85025

== ENCOUNTER 2025-05-26 09:51 | Outpatient (AMB) | payer MEDICARE, OTHER, SELFPAY ==
--- OUTSIDE RECORDS SUMMARY | 2024-12-04 10:30 | XMS_ITS ---
Author Organization Bull Gonzalez MD Address [address] [place], [place] [id number] Care Team Providers Care Formal Service Waiter Name Role Phone Bull Gonzalez Primary Care Provider [phone] Allergies Allergen (clinical drug ingredient) Drug/Non Drug Allergy documented on EMR Reaction Allergy Type Onset Date Status doxycycline Doxycycline vomiting diarrhea Drug Allergy Active Lisinopril angioedema Drug Allergy Activ e lisinopril (uncoded) blurred vision rash Allergy Active [...] Location Date Provider Diagnosis Bull Gonzalez MD [address] [place] [address] [place] [phone] 12/04/2024 Bull Gonzalez Thrombocytopenia D69 .6 ; [...] Up: 6 Months, Reason: Provider Name:Bull gaffney, 07/01/2025 01:30:00 PM, [address] [place] [address], [address], [phone], Provider Name:Bull gaffney, 12/02/2025 08:00:00 AM, [address] [place] [address], [address], [phone], Provider Name:Bull gaffney, 12/09/2025 02:30:00 PM, [address] [place] [address], [address], [phone], Progress Notes * Keven VALENCIADOB:[birth year] (80 yo M)Acc No.[id number]:12/04/2024 Patient: Mckayla SHEEBATRIKeven Provider: Paresh Gonzalez MD :1945 A ge:79 Y S ex:Male Date:12/04/2024 Address:[address] [facility], [id number] Subjective: * Chief Complaints: * 1 . [...] Auto 0.000 0.0-0.012 - X10*3/uL L ab:Comprehensive Norris. Panel Fast (Order Date - 11/27/2024) (Collection [...] 12/04/2024 Generated for Rachel krueger/Dania/Violetta on: 0 05/26/2025 10:27 AM EDT History and Physical Notes * HPI [...]
[2025-05-26 09:56] VITALS: BP 110/62; PULSE 65; O2SAT 97; BMI 25.1
--- NOTE | 2025-05-26 09:56 | A.OFFVIS_ITS ---
Vital Signs 05/26/25 09:56 Height 5 ft 8 in Weight 165 lb 5.547 oz BMI 25.1 BP 110/62 Blood Pressure Location Lt brachial Position Sitting Pulse 65 Pulse Source Pulse Oximeter Pulse Oximetry (%) 97 Oxygen Delivery Method Room Air Intake Visit Reasons: kenzie Intake Note: pt is here for follow up and states he feels good, walks and rides a bike, but only minimal shortness of breath Biology Research Assistant Required: No Allergies dorzolamide Allergy (Severe, Verified 05/26/25 10:07) Unknown valsartan Allergy (Severe, Verified 05/26/25 10:07) unknow lisinopril Allergy (Unknown, Verified 05/26/25 10:07) Unknown sulfamethoxazole (From Bactrim) Allergy (Unknown, Verified 05/26/25 10:07) Unknown trimethoprim (From Bactrim) Allergy (Unknown, Verified 05/26/25 10:07) Unknown Medication List - Last Reconciled 05/26/25 by Dot Webster MD apixaban (Eliquis) 5 mg PO BID cabergoline 0.5 mg PO 2XW diltiazem HCl ER 120 mg PO BID latanoprost 0.005% 1 drp ophthalmic (eye) QPM timolol 0.5% 1 drp ophthalmic (eye) DAILY vit C,S-Ts-lrfso-lutein-zeaxan 250-90-40-1 mg (PreserVision AREDS-2) 1 tab PO BID Do you need a note to return to daycare/school/sports/work: No HPI HPI kenzie: Details: This 80 years old gentleman, who looks younger than stated age, his case of obstructive sleep apnea and is here for 6 months follow-up. Physically remains very active, exercising and biking daily. Uses CPAP very regularly every night at least for 6 hours per night, and sleeps well. His CPAP device does not transmit data online, but according to him the he remains very compliant. There is no issue with the CPAP mask which is AirFit-40 or with the CPAP device. [facility] Medical History HTN (hypertension) Hx of gout Hx of renal calculi Seasonal allergies Hx of bladder cancer History of COVID-19 Glaucoma Pituitary tumor Sleep apnea Surgical History Hx of cystoscopy Hx of right inguinal hernia repair Hx of colonoscopy Family History Father No problems noted. Mother No problems noted. Brother Atrial fibrillation Social History Household Members: Spouse Are you a primary patient care nursing assistant to a significant other at home: No Do you presently have visiting nurse or other home services: No Alcohol intake: current Alcohol intake frequency: does not drink Patient Tobacco Use Status: Former Tobacco user Review of Systems Const All systems reviewed & are unremarkable except as noted in HPI and below Eyes Reports no additional complaints ENT Reports nasal congestion (Off and on due to seasonal allergies) Card Denies chest pain, Reports irregular heart rhythm and Denies leg edema Resp Reports no additional complaints, Denies cough and Denies wheezing GI Reports no additional complaints Reports no additional complaints Musc Reports no additional complaints Skin/Breast Reports system reviewed and no additional complaints, except as documented Neuro Reports no additional complaints Psych Reports no additional complaints Aller/Immun Denies wheezing Physical Exam Vital Signs: Last Vital Signs Pulse 65 05/26/25 09:56 BP 110/62 05/26/25 09:56 Pulse Ox 97 05/26/25 09:56 Oxygen Delivery Method Room Air 05/26/25 09:56 BMI result Body Mass Index 25.1 Const General: comfortable, no acute distress, alert and awake Orientation/consciousness: patient oriented x3 HEENT Head: Yes normal to inspection General nose exam: No nasal polyps present and No nasal discharge present Face and sinus: Yes sinuses nontender Mouth: oropharynx normal Throat: Yes posterior oropharynx normal Eyes General: appearance normal, both eyes and all related structures Neck Neck: Yes normal visual inspection, Yes no lymphadenopathy, Yes trachea midline and Yes no JVD Thyroid: Thyroid normal Chest Chest palpation & inspection: normal inspection of the chest, normal palpation of entire chest wall and no tenderness Resp Other: Percussion note resonant, breath sounds are equal on both sides, no wheezes or rhonchi. Cardio Palpation: normal PMI Rate: regular rate Rhythm: abnormal rhythm (Atrial fib) Heart sounds: no gallops and no murmurs GI Palpation (GI): Soft to palpation, nontender, No hepatosplenomegaly present and no masses Auscultation: normal bowel sounds Back/Spine/Pelvis Thoracic/Lumbar Spine: thoracic and lumbar spine normal to inspection Skin General skin exam: no rashes or lesions noted Neuro General: patient oriented x3 and no focal motor deficits Cranial nerves: Yes CN's II-XII intact bilaterally Extrem General: Yes normal to inspection, Yes no clubbing, cyanosis or edema and Yes no calf tenderness Psych Speech and movement: Normal speech and movement present Assessment & Plan Assessment & Plan (1) KENZIE (obstructive sleep apnea): Comment: PATIENT IS KNOWN TO HAVE OBSTRUCTIVE SLEEP APNEA, BEING TREATED WITH CPAP AT NIGHT , WITH FULLFACE MASK AND PRESSURE SETTING 6-12 CM HE IS VERY COMPLIANT AND BENEFITING . Code(s): G47.33 - Obstructive sleep apnea (adult) (pediatric) Category: Medical Plan: Commended for good compliance and advised to continue using the CPAP Coding Level of Care Code Est Pt Level 3 (42442) Diagnoses KENZIE (obstructive sleep apnea) G47.33
--- OUTSIDE RECORDS SUMMARY | 2025-05-26 10:27 | XMS_ITS | Patient Health Record ---
Author Organization [facility] Address [address] [place] [id number] Care Team Providers Care State Trooper Name Role Phone Lisa BARRAZA, Bull Primary Care Provider Bertram Sims [phone] Allergies Allergen (clinical drug ingredient) Drug/Non Drug Allergy documented on EMR Reaction Allergy Type Onset Date Status montelukast Montelukast Unknown Drug Allergy Act justin lisinopril Lisinopril Unknown Drug Allergy Activ e dorzolamide Dorzolamide Unknown Drug Allergy Act justin sulfamethoxazole / trimethoprim Bactrim Unknown Drug Allergy Active Reason For Referral No Information Medications Medication SIG (Take, Route, Frequency, Duration) Notes Start Date End Date Status Cabergoline 0.5 MG 1 tablet Orally for 30 day(s) Active Metoprolol Succinate 50 MG 1 capsule Ora lly Once a day for 30 day(s) Active Latanoprost 0.005 % 1 drop into affected eye in the evening Ophthalmic Once a day Active Timolol Hemihydrate 0.5 % 1 drop into af fected eye Ophthalmic Once a day Active Aspirin 81 81 MG 1 tablet Orally Once a day for 30 day(s) Active PreserVision AREDS 2 - as directed Orally Active Valsartan 160 MG 1 tablet Orally Once a day for 30 day(s) Active Immunizations Vaccine Route Administration Date Status Comme nts Influenza Unknown 07/19/2020 Administered Social History Tobacco Use: Social History Observation Description Date Details (start date - stop date) Never Smoker NA - NA Tobacco Use/Smoking Question Answer Notes Patient is a nonsmoker Alcohol Screen Question Answer Notes Did you have a drink contain ing alcohol in the past year? Yes How often did you have a dri nk containing alcohol in the past year? Monthly or less (1 point) How many drinks did you have on a typical day when you were drinking in the past year? 1 or 2 drinks (0 point) How often did you have 6 or more drinks on one occasion in the past year? Never (0 point) Points 1 Interpretation Negative Section Notes: Nonsmoker; occ. alcohol Problems Problem Type SNOMED Code ICD Code Onset Dates Problem Status W/U Status Risk Notes Problem 571386330 Encounter for screening for malignant neoplasm of colon (Z12.11) Active confirmed Problem 431280470 Long-term use of aspirin therapy (Z79.82) Active confirmed Plan Of Treatment Future Test Test Name Order Date COLONOSCOPY 08/16/2021 Insurance Providers Payer Name Payer Address Payer Phone Subscriber Number Group Number Insured Name Patient Relationship to Insured Coverage Start Date Coverage End Date MEDICARE OF [place] [address] [place] [address] [id number] VALENTE NICHOLE Self - patient is the insured [facility] SUPPLEMENTAL PLAN [address] [place] [address] [phone] [id number] DAYANARA, VALENTE CRISTY Self - patient is the insured Medical (General) History Medical History History ICD Code HTN Sleep apnea but stopped using cpap celestino hendrickson as it was making him sick Tumor on pituitary gland--being treated with medication Denies SD,DM,CVA,Lung disease,renal dise ase Glaucoma Negative colonoscopies in 1996, 1999, an d 2009 COVID in 10/2020 Surgical History Surgery Date(Month/Year) Right inguinal hernia surgery
== END 2025-05-26 10:07 | disposition home or self-care (01) ==
LOC: HO.HPS 09:51
PROVIDERS: PCP Internal Medicine; Visit Provider Internal Medicine
DX: G47.33 Obstructive sleep apnea (adult) (pediatric) (principal)
CPT/HCPCS: 99213

== ENCOUNTER → 2025-05-26 09:51 | Outpatient (BNVA) | payer MEDICARE, OTHER, SELFPAY | PROVIDERS: PCP Internal Medicine; Visit Provider Internal Medicine | DX: G47.33 Obstructive sleep apnea (adult) (pediatric) (principal) | CPT/HCPCS: 99212 ==

== ENCOUNTER → 2025-07-12 10:50 | Outpatient (REF) | payer MEDICARE, OTHER, SELFPAY ==
--- OUTSIDE RECORDS SUMMARY | 2024-12-04 10:30 | XMS_ITS ---
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 Name Role Phone Bull Gonzalez Primary Care Provider Allergies Allergen (clinical drug ingredient) Drug/Non Drug Allergy documented on EMR Reaction Allergy Type Onset Date Status doxycycline Doxycycline vomiting diarrhea Drug Allergy Active lisinopril Lisinopril angioedema Drug Allergy Acti ve lisinopril lisinopril (uncoded) blurred vision rash Allergy Active Results Component Value Reference Range Notes Occult Blood, Stool, Guaiac Reviewed date:12/04/2024 03:43:06 PM Interpretation:Negative Performing Lab: Notes/Report: Negative Occult Blood, Stool, Guaiac Neg REASON FOR VISIT review labs / must see urine Medications Medication SIG (Take, Route, Frequency, Duration) Notes Start Date End Date Status Ventolin HFA 108 (90 Base) MCG/ACT 2 puffs as needed Inhalation every 6 hrs for 30 days Not-Taking Valsartan-hydroCHLOROthia zide 160-12.5 MG 1 tablet Orally Once a day for 30 day(s) 06/05/2021 Not-Taking LORazepam 0.5 MG 1 or 2 tabs before m ri Orally Once a day for 1 days 08/07/2024 Active Cialis 20 MG 1 tablet Orally Once a day for 30 days Not-Taking Flonase 50 MCG/ACT 2 sprays Nasally Onc e a day for 30 day(s) 10/16/2011 Not-Taking Celecoxib 200 MG 1 capsule with food Orally Once a day for 30 day(s) 06/02/2024 Active Tadalafil 20 MG 1/5 tab Orally Once a day as needed 05/28/2022 Active Dilt-XR 120 MG 1 capsule Orally twi ce a day Active Eliquis 5 MG as directed Orally bid Active Cabergoline 0.5 MG 1 tablet Orally twic e a week Active Timolol Hemihydrate 0.5 % 1 drop into af fected eye Ophthalmic Once a day Active Ocuvite Extra as directed Orally Active Xalatan 0.005 % 1 drop into affected eye in the evening Ophthalmic Once a day Active Social History Tobacco Use: Social History Observation Description Date Details (start date - stop date) Former Smoker NA - NA Tobacco Use/Smoking Question Answer Notes Patient is a former smoker How long has it been since y ou last smoked? > 10 years Additional Findings: Tobacco Non-User Fo rmer smoker, currently using no form of tobacco Alcohol Screen Question Answer Notes Did you have a drink containing alcohol in the p ast year? No Points 0 Interpretation Negative Vital Signs Blood pressure systolic 102 mm Hg 12/04/19 25 Blood pressure diastolic 50 mm Hg 025 Height 67 in 12/04/2024 Weight 171 lbs 12/04/2024 BMI 26.78 kg/m2 12/04/2024 weight is up 2 pounds since 06-02-24 Encounters Encounter Location Date Provider Diagnosis Bull Gonzalez MD [address] [place] [address] [place] [phone] 12/04/2024 Bull Gonzalez Thrombocytopenia D69 .6 ; Malignant neoplasm of urinary bladder, unspecified site C67.9 ; Essential hypertension I10 ; Prediabetes R73.09 ; Persistent atrial fibrillation I48.19 ; Colon cancer screening Z12.11 and Depression screening Z13.31 Assessments Encounter Date Diagnosis (ICD Code) Assessment Notes Treatment Notes Treatment Clinical Notes Section Notes 12/04/2024 Thrombocytopenia (ICD-10 - D69.6) stable, will continue to monitor 12/04/2024 Malignant neoplasm of urinary bladder, unspecified site (ICD-10 - C67.9) get cysto yearlys, monitored by Urology 12/04/2024 Essential hypertension (ICD-10 - I10) stable, at goal, will continue current regiment 12/04/2024 Prediabetes (ICD-10 - R73.09) stable, no need for medication at this time 12/04/2024 Persistent atrial fibrillation (ICD-10 - I48.19) stable, will continue current regiment 12/04/2024 Colon cancer screening (ICD-10 - Z12.11) guaiac negative 12/04/2024 Depression screening (ICD-10 - Z13.31) negative screen Plan Of Treatment Treatment Notes Assessment Notes Thrombocytopenia stable, will continu e to monitor Malignant neoplasm of urinar y bladder, unspecified site get cysto yearlys, monitored by Urology Essential hypertension stable, at goal, will continue current regiment Prediabetes stable, no need for medication at this time Persistent atrial fibrillation stable, w ill continue current regiment Colon cancer screening guaiac negative Depression screening negative screen Next Appt Details Follow Up: 6 Months, Reason: Provider Name:Bull gaffney, 12/02/2025 08:00:00 AM, [address] [place] [address], [address] [place] [address], [phone], Provider Name:Bull gaffney, 12/09/2025 02:30:00 PM, [address] [place] [address], [address], [place], [place], [phone], Progress Notes * Keven VALENCIADOB:[birth year] (80 yo M)Acc No.[id number]:12/04/2024 Patient: Mckayla SORENSEN Keven Garcia Provider: Paresh Gonzalez MD :1945 A ge:79 Y S ex:Male Date:12/04/2024 Address:[address] [facility], [id number] Subjective: * Chief Complaints: * 1 . Review labs / must see urine. * HPI: D epression Screening: PHQ-9 L ittle interest or pleasure in doing things N ot at all, F eeling down, depressed, or hopeless N ot at all, T rouble falling or staying asleep, or sleeping too much N ot at all, F eeling tired or having little energy N ot at all, P oor appetite or overeating N ot at all, F eeling bad about yourself or that you are a failure, or have let yourself or your family down N ot at all, T rouble concentrating on things, such as reading the newspaper or watching television N ot at all, M oving or speaking so slowly that other people could have noticed; or the opposite, being so fidgety or restless that you have been moving around a lot more than usual N ot at all, T houghts that you would be better off or of hurting yourself in some way N ot at all, T otal Score 0 . I nterpretation and Intervention D epression Screening Findings N egative, F ollow-Up for Depression : review of PHQ-9 found negative result, no follow-up needed. C ommunication Needs: Communication Needs D oes the patient have a hearing impairment Y es, I f yes, what is the hearing impairment? H kristi of hearing, Hearing Aids, D oes the patient have a vision impairment? Y es, I f yes, what is the vision impairment? G lasses, D oes the patient have a cognition impairment? N o. F all Risk: History H ave you had any falls with injury in the past year? N o, H ave you had two or more falls in the past year? N o. S MEI Questions: SDOH Questions I n the past year have you been worried about losing housing? N o, I n the past year have you or any family members you live with been unable to get any of the following when it was really needed? Check all that apply: N one. S ymptom(s): patient is a 79 yo male here for review of recent labs and follow up of chronic issues. here for yearly evaluation. had mri few months ago and no change in his tumor. * ROS: G eneral/Constitutional: Patient denies f atigue , headache. C hange in appetite?denies. C hills d enies. F ever d enies. O phthalmologic: Blurred vision d enies. D ischarge d enies. P ain d enies. E NT: Patient denies d ecreased sense of smell , any loss of taste , sore throat. D ecreased hearing d enies. S ore throat d enies. S wollen glands d enies. E ndocrine: Cold intolerance d enies. E xcessive thirst d enies. H eat intolerance d enies. W eight loss d enies. R espiratory: Cough d enies. S hortness of breath at rest d enies. S hortness of breath with exertion d enies. W heezing d enies. C ardiovascular: Chest pain at rest d enies. C hest pain with exertion?denies. I rregular heartbeat d enies. S hortness of breath d enies. ? G astrointestinal: Abdominal pain d enies. C hange in bowel habits d enies. D iarrhea d enies. N ausea d enies. R ectal bleeding d enies. V omiting d enies . G enitourinary: Blood in urine d enies. D ifficulty urinating d enies. F requent urination d enies. M usculoskeletal: Patient denies m uscle aches. P ainful joints d enies. W eakness d enies. P eripheral Vascular: Patient denies r ed and blue toes. S kin: Dry skin d enies. I tching d enies. D enies?Mole(s), changes in moles, new moles or any lesions of concern. D enies P hotosensitivity. R adriana d enies. N eurologic: Dizziness d enies. F ainting d enies. H eadache?denies. * Medical History: S tress test 2007 was normal, colonoscopy 08/11/2010 due in 10 years( 2019) Dr Briseno, Glaucoma stage, unspecified, Thrombocytopenia, Thrombocytopenia. * Family History: F ather: 73 yrs, Heart Failure. M other: 86 yrs, Heart Failure. 1 brother(s) . 3 son(s) . . No pertinent family medical history, No pertinent family medical history, No pertinent family medical history. * Social History: T obacco Use: T obacco Use/Smoking P atient is a f ormer smoker, H ow long has it been since you last smoked? > 10 years, A dditional Findings: Tobacco Non-User F ormer smoker, currently using no form of tobacco. D rugs/Alcohol: A lcohol Screen D id you have a drink containing alcohol in the past year? N o, P oints 0 , I nterpretation N egative. M iscellaneous: C affeine: yes, frequency:, 1-2 cups per day. Children: yes. Exercise: yes, walks 3 miles QD. Home smoke detector use: yes. Housing: owning. Living with: spouse. Marital status: . Occupation: weeks/months/years, RETIRED. Pets: cats: dogs:1 DOG. Travel outside of the [place]: no. * Medications: T aking Ocuvite Extra Tablet as directed Orally , Taking Timolol Hemihydrate 0.5 % Solution 1 drop into affected eye Ophthalmic Once a day , Taking Xalatan 0.005 % Solution 1 drop into affected eye in the evening Ophthalmic Once a day , Taking Cabergoline 0.5 MG Tablet 1 tablet Orally twice a week , Taking Tadalafil 20 MG Tablet 1/5 tab Orally Once a day as needed , Taking Celecoxib 200 MG Capsule 1 capsule with food Orally Once a day , Taking Eliquis 5 MG Tablet as directed Orally bid , Taking Dilt-XR 120 MG Capsule Extended Release 24 Hour 1 capsule Orally twice a day , Taking LORazepam 0.5 MG Tablet 1 or 2 tabs before mri Orally Once a day , Not-Taking/PRN Valsartan-hydroCHLOROthiazide 160-12.5 MG Tablet 1 tablet Orally Once a day , Not-Taking/PRN Ventolin HFA 108 (90 Base) MCG/ACT Aerosol Solution 2 puffs as needed Inhalation every 6 hrs , Not-Taking/PRN Flonase 50 MCG/ACT Suspension 2 sprays Nasally Once a day , Not-Taking/PRN Cialis 20 MG Tablet 1 tablet Orally Once a day , Medication List reviewed and reconciled with the patient * Allergies: l isinopril: blurred vision rash, Doxycycline: vomiting diarrhea, Lisinopril: angioedema. Objective: * Vitals: H t: 67, Wt:171, BMI:26.78, BP:102/50. weight is up 2 pounds since 06-02-24. * P ast Orders: L ab:PSA,Total (Free>4and<10) (Order Date - 11/27/2024) (Collection Date & Time - 11/27/2024 07:45 AM) Value Reference Range PSA,Total (Free>4and<10) 0.27 0.00-4.00 - ng/ mL L ab:Microalbumin, Random (Order Date - 11/27/2024) (Collection Date & Time - 11/27/2024 07:45 AM) Value Reference Range Creatinine Urine 20.80 - mg/dL Microalbumin Urine 14.0 - mg/L Microalbum Creatinine Ratio Ur 67.3 H <30 - ug/ mg cr L ab:Hemoglobin A1c (Order Date - 11/27/2024) (Collection Date & Time - 11/27/2024 07:45 AM) Value Reference Range Hemoglobin A1c % 5.1 <6.0 - % Estimated Average Glucose 100 - mg/dL L ab:Complete Blood Count Auto Diff (Order Date - 11/27/2024) (Collection Date & Time - 11/27/2024 07:45 AM) Value Reference Range White Blood Count 5.6 4.8-10.8 - X10*3/uL Red Blood Count 4.97 4.60-5.80 - X10*6/uL Hemoglobin 15.8 14.0-18.0 - g/dl Hematocrit 46.2 42.0-52.0 - % Mean Corpuscular Volume 93.0 80.0-98.0 - fL Mean Corpuscular Hemoglobin 31.8 27.0-33.0 - pg Mean Corpuscular HGB Conc 34.2 31.0-36.0 - g/ dl Red Cell Distribution Width 13.2 11.0-16.0 - % Platelet Count 128 L 160-400 - X10*3/uL Mean Platelet Volume 10.6 9.4-12.4 - fL Neutrophils Percent Auto 65.6 45-73 - % Imm Gran Pct Auto 0.9 H 0.0-0.4 - % Lymphocytes Percent Auto 19.0 L 20-40 - % Monocytes Percent Auto 8.8 2-11 - % Eosinophils Percent Auto 5.2 H 0-4 - % Basophils Percent Auto 0.5 0-2 - % NRBC Pct Auto 0.0 0.0-0.2 - /100WBC Neutrophils Absolute Auto 3.7 2.0-8.3 - x10* 3/uL Imm Gran Abs Auto 0.05 H 0.00-0.03 - X10*3/uL Lymphocytes Absolute Auto 1.1 L 1.2-4.9 - X10* 3/uL Monocytes Absolute Auto 0.5 0.1-1.2 - X10*3/ uL Eosinophils Absolute Auto 0.3 0.0-0.4 - X10* 3/uL Basophils Absolute Auto 0.0 0.0-0.2 - X10*3/ uL NRBC Abs Auto 0.000 0.0-0.012 - X10*3/uL L ab:Comprehensive [place]. Panel Fast (Order Date - 11/27/2024) (Collection Date & Time - 11/27/2024 07:45 AM) Value Reference Range Sodium 142 135-145 - mmol/L Bilirubin Total 0.8 0.0-1.0 - mg/dL Aspartate Amino Transferase 25 5-37 - U/L Alanine Aminotransferase 28 0-40 - U/L Total Protein 6.7 6.5-8.0 - g/dL Albumin Level 4.2 3.5-5.0 - g/dL Alkaline Phosphatase 93 39-117 - U/L Potassium 3.8 3.3-5.1 - mmol/L Chloride 107 96-108 - mmol/L Carbon Dioxide 30 H 22-29 - mmol/L Anion Gap 9 L 12-20 - Blood Urea Nitrogen 21 H 9-16 - mg/dL Creatinine 1.03 0.5-1.4 - mg/dL Estimated Glomerular Filt Rate > 60 - Glucose Fasting 99 60-99 - mg/dL Calcium 9.0 8.4-10.2 - mg/dL L ab:Lipid Panel (Order Date - 11/27/2024) (Collection Date & Time - 11/27/2024 07:45 AM) Value Reference Range Triglycerides 61 <150 - mg/dL Cholesterol 157 <200 - mg/dL LDL Cholesterol Calculated 94 <100 - mg/dL HDL Cholesterol 51 >40 - mg/dL * Examination: G eneral Examination: GENERAL APPEARANCE: w ell developed, well nourished, in no acute distress. HEAD: n ormocephalic, atraumatic. EYES: p upils equal, round, reactive to light and accommodation, sclera non-icteric. EARS: n ormal. ORAL CAVITY: m ucosa moist. THROAT: c lear. NECK/THYROID: n manuela supple, full range of motion, no cervical lymphadenopathy, no bruits. SKIN: w arm and dry, no suspicious lesions. HEART: r egular rate and rhythm, S1, S2 normal, no murmurs.? LUNGS: c lear to auscultation bilaterally. ABDOMEN: s oft, nontender, nondistended, bowel sounds present, normal, no organomegaly , no masses palpable. RECTAL EXAM: n ormal tone, no external hemorrhoids, no masses palpable, prostate normal, stool guaiac negative. MALE GENITOURINARY: c ircumcised , no penile lesions or discharge , testes descended bilaterally , no testicular mass. EXTREMITIES: n o clubbing, cyanosis, or edema. NEUROLOGIC: n onfocal, motor strength normal upper and lower extremities, sensory exam intact. Assessment: * Assessment: 1. T hrombocytopenia - D69.6 (Primary) 2 . M alignant neoplasm of urinary bladder, unspecified site - C67.9 3 . E ssential hypertension - I10 ?4. P rediabetes - R73.09 5 . P ersistent atrial fibrillation - I48.19 6. C olon cancer screening - Z12.11 7 . D epression screening - Z13.31 Plan: * Treatment: 2. M alignant neoplasm of urinary bladder, unspecified site Notes: get cysto yearlys, monitored by Urology 3. E ssential hypertension Notes: stable, at goal, will continue current regiment 4. P rediabetes Notes: stable, no need for medication at this time 5. P ersistent atrial fibrillation Notes: stable, will continue current regiment 6. C olon cancer screening L AB: Occult Blood, Stool, Guaiac (Collection Date & Time - 12/04/2024) N egative Value Reference Range O ccult Blood, Stool, Guaiac Neg Notes: guaiac negative??7.?Depression screening? Notes: negative screen?? * Procedure Codes: 8 2270 TEST FOR BLOOD, FECES, G2211 Complex e/m visit add on * Follow Up: 6 Months * * The named appointment provid er may or may not be the originator of this progress note, and it is not deemed complete until electronically signed by the appointment provider. Sign off status: Pending * Provider: Paresh Gonzalez MD Date: 0 12/04/2024 Generated for Rachel krueger/Dania/Violetta on: 0 07/12/2025 12:05 PM EDT History and Physical Notes * HPI (History of Present Illness) Category Sub-Category Detail Notes Category Not es Symptom(s) patient is a 79 yo male here for review of recent labs and follow up of chronic issues. here for yearly evaluation. had mri few months ago and no change in his tumor Depression Screening PHQ-9 Little inte rest or pleasure in doing things: Not at all Feeling down, depressed, or hopeless: No t at all Trouble falling or staying asleep, or sl eeping too much: Not at all Feeling tired or having little energy: N ot at all Poor appetite or overeating: Not at all Feeling bad about yourself o r that you are a failure, or have let yourself or your family down: Not at all Trouble concentrating on thi ngs, such as reading the newspaper or watching television: Not at all Moving or speaking so slowly that other people could have noticed; or the opposite, being so fidgety or restless that you have been moving around a lot more than usual: Not at all Thoughts that you would be b piotr off or of hurting yourself in some way: Not at all Total Score: 0 Interpretation and Intervention Depression Robyn jacome Findings: Negative Follow-Up for Depression: : review of PH Q-9 found negative result, no follow-up needed SDOH Questions SDOH Questions In the past year have you been worried about losing housing?: No In the past year have you or any family members you live with been unable to get any of the following when it was really needed? Check all that apply:: None Fall Risk History Have you had any falls with injury i n the past year?: No Have you had two or more falls in the st year?: No Communication Needs Communication Needs Does the patient have a hearing impairment: Yes If yes, what is the hearing impairment?: Hard of hearing, Hearing Aids Does the patient have a vision impairmen t?: Yes If yes, what is the vision impairment?: Glasses Does the patient have a cognition impair ment?: No Examination Category Sub-Category Detail Notes Category Not es General Examination GENERAL APPEARANCE: well dev eloped, well nourished, in no acute distress HEAD: normocephalic, atrau matic EYES: pupils equal, round, reactive to light and accommodation, sclera non-icteric EARS: normal THROAT: clear NECK/THYROID: neck supple, full ra nge of motion, no cervical lymphadenopathy, no bruits HEART: regular rate and rhy thm, S1, S2 normal, no murmurs LUNGS: clear to auscultatio n bilaterally ABDOMEN: soft, nontender, non distended, bowel sounds present, normal, no organomegaly , no masses palpable NEUROLOGIC: nonfocal, motor stre ngth normal upper and lower extremities, sensory exam intact SKIN: warm and dry, no kenton picious lesions EXTREMITIES: no clubbing, cyanosi s, or edema MALE GENITOURINARY: circumcised , no pen ile lesions or discharge , testes descended bilaterally , no testicular mass RECTAL EXAM: normal tone, no exte rnal hemorrhoids, no masses palpable, prostate normal, stool guaiac negative ORAL CAVITY: mucosa moist
--- NOTE | 2025-07-12 10:53 | CA_ITS ---
Transthoracic Echocardiogram Patient (Last, First, Middle): Keven Aquino J Gender: M Date of : 1945 Age: 80 Procedure Date: 07/12/2025 Procedure Type: Transthoracic Echocardiogram Location: OP Height: 172.72 cm Weight: 74.84 kg BSA: 1.88 m2 Heart Rate: bpm BP: 110 / 62 mmHg Asbestos Surveyor: EMHRDAD Referring MD: Atilio Ball MD Symptoms: I42.9 - Cardiomyopathy, unspecified Study Quality: Adequate ECG Rhythm: Atrial Fibrillation Conclusions: - The left ventricular systolic function is mildly decreased. The visually estimated ejection fraction is between 45-50%. - Moderate biatrial enlargement. - No obvious valvular pathology seen on this study. - There is mild dilatation of the ascending aorta measuring 4.10 cm. Findings Left Ventricle Normal left ventricular cavity size. There is normal left ventricular wall thickness. The left ventricular systolic function is mildly decreased. The visually estimated ejection fraction is between 45-50%. Diastolic function is indeterminate on the basis of available data. Right Ventricle Mildly increased right ventricular cavity size. There is low normal right ventricular systolic function. Atria Moderate biatrial enlargement. Aortic Valve There is a normal trileaflet aortic valve. There is no aortic valve stenosis. Trace to mild aortic regurgitation. Mitral Valve The mitral valve appears normal. There is no mitral valve regurgitation. There is no mitral valve stenosis. Pulmonic Valve The pulmonic valve is likely normal. Tricuspid Valve There is trace tricuspid valve regurgitation. There is no evidence of pulmonary hypertension. Great Vessels The aortic arch is normal in size. There is mild dilatation of the ascending aorta measuring 4.10 cm. Venous The inferior vena cava is mildly dilated and collapses greater than 50% with inspiration. Pericardium/Pleural There is no evidence of pericardial effusion. Prior Study Comparison No significant change compared to prior study dated: 12/18/2023. Recommendations, Care & Conclusions No obvious valvular pathology seen on this study. Measurements 2D Linear Measurements IVSd: 1.05 0.6-0.9/0.6-1.0 cm LVIDd: 4.64 3.9-5.3/4.2-5.9 cm LVIDd Index: 2.47 2.4-3.2/2.2-3.1 cm/m2 LVIDs: 3.51 2.0-3.6 cm LVPWd: 1.02 0.7-1.1 cm LA Diam: 3.70 2.7-3.8/3.0-4.0 cm LAIDs Index: 1.97 1.5-2.3 cm/m2 LV Mass: 210.30 67-162/88-224 g LV Mass Index: 111.86 43-95/49-115 g/m2 LVOT Diam: 2.20 3.0+(-)1.3 cm 2D Systolic Function EF 4C: 49.10 >55% EF 2C: 54.40 >55% EF BiP: 52.50 >55% Mitral Valve MV Pk E: 0.69 MV Decel Time: 218.00 E'Lateral: 8.36 E'Medial: 8.02 E/E' Med: 8.60 E/E' Lat: 8.20 PHT: 64.00 MVA PHT: 3.44 Decel Lasalle: 3.91 Aortic Valve AoV Pk Benito: 1.12 AoV Mn Benito: 0.80 AoV VTI: 0.28 AoV Pk Grad: 5.00 Aov Mn Grad: 3.00 RENUKA Cont.VTI: 2.27 LVOT LVOT Pk Benito: 0.67 LVOT Mn Benito: 0.44 LVOT VTI: 0.17 LVOT Pk Grad: 2.00 LVOT Mn Grad: 1.00 LVOT Diam: 2.20 LVOT Area: 3.80 Diastolic Function MV Pk E: 0.69 E'Medial: 8.02 E/E' Med: 8.60 E' Laterial: 8.36 E/E' Lat: 8.20 Right Ventricle TAPSE (mm): 17.60 TVS' Benito: 9.51 Tricuspid Valve TR Pk Benito: 2.09 TR Pk Grad: 17.00 RA Press: 8.00 RVSP: 25.00 Great Vessels Aorta Sinus of Valsalva: 3.66 2.0-3.[address] Ridge: 2.15 1.7-3.4 cm Ao Asc: 4.10 2.1-3.4 cm Ao Arch: 3.50 Updated in Other Vendor System with Status of Final Atilio Ball MD electronically signed on 07/13/2025 12:33:41 PM with status of Final
== END ==
LOC: HO.CARD 10:50
PROVIDERS: PCP Internal Medicine; Visit Provider Internal Medicine
DX: I42.9 Cardiomyopathy, unspecified (principal)
CPT/HCPCS: 93306

== ENCOUNTER → 2025-07-12 10:53 | Outpatient (BNV) | payer MEDICARE, OTHER, SELFPAY | PROVIDERS: PCP Internal Medicine; Visit Provider Internal Medicine | DX: I51.7 Cardiomegaly (principal); I35.1 Nonrheumatic aortic (valve) insufficiency; I77.810 Thoracic aortic ectasia | CPT/HCPCS: 93306 ==

== ENCOUNTER 2025-07-20 12:33 | Outpatient (AMB) | payer MEDICARE, OTHER, SELFPAY ==
[2025-07-20 12:41] VITALS: BP 100/58; PULSE 60; BMI 25.1
--- NOTE | 2025-07-20 12:41 | A.OFFVIS_ITS ---
Vital Signs 07/20/25 12:41 Height 5 ft 8 in Weight 165 lb 5.547 oz BMI 25.1 BP 100/58 L Blood Pressure Location Lt brachial Position Sitting Pulse 60 Pulse Source Monitor Intake Visit Reasons: 1 yr follow up Allergies dorzolamide Allergy (Severe, Verified 05/26/25 10:07) Unknown valsartan Allergy (Severe, Verified 05/26/25 10:07) unknow lisinopril Allergy (Unknown, Verified 05/26/25 10:07) Unknown sulfamethoxazole (From Bactrim) Allergy (Unknown, Verified 05/26/25 10:07) Unknown trimethoprim (From Bactrim) Allergy (Unknown, Verified 05/26/25 10:07) Unknown Medication List - Last Reconciled 07/20/25 by Atilio Ball MD apixaban (Eliquis) 5 mg PO BID cabergoline 0.5 mg PO 2XW diltiazem HCl ER 120 mg PO BID latanoprost 0.005% 1 drp ophthalmic (eye) QPM timolol 0.5% 1 drp ophthalmic (eye) DAILY vit C,Z-Xx-zppuk-lutein-zeaxan 250-90-40-1 mg (PreserVision AREDS-2) 1 tab PO BID HPI Comments Details: Keven returns for follow-up regarding atrial fibrillation. In the past, he came for colonoscopy and found to have new atrial fibrillation. Cardioversion was discussed but he was not inclined and hence he is mainly on rate control only. With inclines, he may feel short of breath but otherwise he is doing fine. No other symptoms. No palpitations. No angina. Getting along okay. [facility] Medical History HTN (hypertension) Hx of gout Hx of renal calculi Seasonal allergies Hx of bladder cancer History of COVID-19 Glaucoma Pituitary tumor Sleep apnea Surgical History Hx of cystoscopy Hx of right inguinal hernia repair Hx of colonoscopy Family History Father No problems noted. Mother No problems noted. Brother Atrial fibrillation Social History Household Members: Spouse Are you a primary care transitions nurse to a significant other at home: No Do you presently have visiting nurse or other home services: No Alcohol intake: current Alcohol intake frequency: does not drink Patient Tobacco Use Status: Former Tobacco user Review of Systems Const Denies weakness ENT Denies dizziness Card Denies chest pain, Denies chest pain with activity, Denies syncope, Denies rapid heart rate, Denies pedal edema, Denies edema, Denies leg edema, Denies lightheadedness, Denies palpitations, Denies dyspnea, Denies dyspnea on exertion and Denies orthopnea Resp Denies cough, Denies dyspnea and Denies dyspnea on exertion GI Denies hematochezia and Denies change in stool character Musc Denies abnormal gait, Denies muscle cramps, Denies muscle weakness, Denies numbness, Denies radiating pain into limb and Denies tingling Neuro Denies abnormal gait, Denies dizziness, Denies syncope, Denies numbness, Denies tingling and Denies weakness Endo Denies palpitations Physical Exam Vital Signs: Last Vital Signs Pulse 60 07/20/25 12:41 BP 100/58 L 07/20/25 12:41 BMI result Body Mass Index 25.1 Const General: comfortable and no acute distress Orientation/consciousness: patient oriented x3 HEENT Other: Unremarkable Head: Yes normal to inspection Neck Neck: Yes normal visual inspection Chest Chest palpation & inspection: normal inspection of the chest Resp Auscultation: clear to auscultation bilaterally Cardio Palpation: normal PMI Heart sounds: S1 normal heart sound present, S2 normal heart sound present, no gallops, no murmurs and no rubs GI Palpation (GI): Soft to palpation Back/Spine/Pelvis Other: unremarkable Skin General skin exam: no rashes or lesions noted Neuro General: patient oriented x3 Extrem General: Yes normal to inspection Psych Mental Status: mental status grossly normal Office Procedures EKG Details: EKG with atrial fibrillation at a rate of 60/Min; nonspecific ST-T changes. [id number], Complete Assessment & Plan Assessment & Plan (1) Persistent atrial fibrillation: Code(s): I48.19 - Other persistent atrial fibrillation Category: Medical Plan: Per patient preference, did not undergo any cardioversion and maintained on rate control only. Continue diltiazem. Continue anticoagulation. (2) Essential hypertension: Code(s): I10 - Essential (primary) hypertension Category: Medical Plan: Stable. No changes. (3) Cardiomyopathy: Code(s): I42.9 - Cardiomyopathy, unspecified Category: Medical Plan: Most recent LVEF 45-50%. Has been in this range for a long time. Clinically, no heart failure symptoms or signs. Could be related to atrial fibrillation. Normal myocardial perfusion imaging study. (4) Raynaud's phenomenon: Code(s): I73.00 - Raynaud's syndrome without gangrene Category: Medical Qualifiers: Raynaud?s-associated gangrene presence: without gangrene Qualified Code(s): I73.00 - Raynaud's syndrome without gangrene Plan: Off beta-blockers. No recent issues per patient. (5) JOCY (obstructive sleep apnea): Comment: PATIENT IS KNOWN TO HAVE OBSTRUCTIVE SLEEP APNEA, BEING TREATED WITH CPAP AT NIGHT , WITH FULLFACE MASK AND PRESSURE SETTING 6-12 CM HE IS VERY COMPLIANT AND BENEFITING . Code(s): G47.33 - Obstructive sleep apnea (adult) (pediatric) Category: Medical Plan: Continue CPAP. (6) Ascending aorta enlargement: Code(s): I77.89 - Other specified disorders of arteries and arterioles Category: Medical Plan: Measured at 4.1 cm. In previous study, 3.9 cm. Even earlier, 4 cm. Overall, no significant changes. Possibly recheck in 2 years. Plan Discussion Notes During the visit, we discussed the management of atrial fibrillation and confirmed that the condition is stable with current treatment. The patient was advised to continue using the CPAP mask for obstructive sleep apnea and to maintain regular exercise within his comfort level. Follow-up is scheduled for one year unless new symptoms arise. Patient was informed and verbally consented to the use of an ambient scribe for clinic note documentation during this visit. Patient Instructions: - Continue using the CPAP mask at night. - Maintain regular exercise, avoiding strenuous activities that cause significant shortness of breath. - Schedule a follow-up appointment in one year or sooner if new symptoms develop. Coding Level of Care Code Est Pt Level 4 (92766) Complex EM visit Add On G2211 Diagnoses Persistent atrial fibrillation I48.19 Essential hypertension I10 Cardiomyopathy I42.9 Raynaud's phenomenon without gangrene I73.00 Raynaud?s-associated gangrene presence: without gangrene JOCY (obstructive sleep apnea) G47.33 Ascending aorta enlargement I77.89 CPT Codes EKG - CPT: 96027-Evofrxsynryyjntpv, Complete ([id number])
== END 2025-07-20 12:58 | disposition home or self-care (01) ==
LOC: HO.HCS 12:34
PROVIDERS: PCP Internal Medicine; Visit Provider Internal Medicine
DX: I48.19 Other persistent atrial fibrillation (principal); I10 Essential (primary) hypertension; I42.9 Cardiomyopathy, unspecified; I73.00 Raynaud's syndrome without gangrene; G47.33 Obstructive sleep apnea (adult) (pediatric); I77.89 Other specified disorders of arteries and arterioles
CPT/HCPCS: 93010; 99214; G2211

== ENCOUNTER → 2025-07-20 12:33 | Outpatient (BNVA) | payer MEDICARE, OTHER, SELFPAY | PROVIDERS: PCP Internal Medicine; Visit Provider Internal Medicine | DX: I10 Essential (primary) hypertension (principal); I42.9 Cardiomyopathy, unspecified; I48.19 Other persistent atrial fibrillation; I73.00 Raynaud's syndrome without gangrene; I77.89 Other specified disorders of arteries and arterioles; Z99.89 Dependence on other enabling machines and devices; Z87.891 Personal history of nicotine dependence | CPT/HCPCS: 93005; 99212 ==